=== PATIENT | male | born 1935 | race Caucasian/White ===

== ENCOUNTER → 2016-10-27 | Outpatient (CLI) | payer MEDICARE, BC ==
[2016-10-27 10:43] LABS: Blood Urea Nitrogen 23 mg/dL (9-20); Non-African American GFR(MDRD) 51 (>60 ml/min/1.73 sqM)
--- NOTE | 2016-10-27 11:35 | CT ---
EXAMINATION TYPE: CT chest w con DATE OF EXAM: 10/27/2016 11:17 AM COMPARISON: CT chest January 02, 2014. HISTORY: Lung nodule and chest pain per order. CT DLP: 766 mGycm. Automated Exposure Control for Dose Reduction was Utilized. TECHNIQUE: CT scan of the thorax is performed following with IV Contrast, patient injected with 80 m l mL of Visipaque 320. FINDINGS: LUNGS: There is some linear bibasilar scarring redemonstrated. No new suspicious groundglass opacity or consolidation is seen. No new concerning parenchymal nodule or mass is identified bilaterally. Th ere is no pleural effusion or pneumothorax seen. The tracheobronchial tree is patent. MEDIASTINUM: There are no greater than 1 cm hilar or mediastinal lymph nodes. No cardiomegaly or pe ricardial effusion is seen. Coronary artery calcification is noted. There is herniation of abdominal fat from the mediastinum into the lower chest posterior to the heart redemonstrated. OTHER: Small degree of bilateral gynecomastia is redemonstrated. There is focus of dystrophic calcifi cation along posterior margin of liver redemonstrated stable presumed benign, etiology uncertain. [place] pect related to prior trauma and healing. There is fat replaced atrophy of the pancreatic head and un cinate process. There is simple appearing 2 cm cyst upper pole level right kidney posteriorly diminis hed in size from prior. Mild multilevel spurring in the spine is present. IMPRESSION: No worrisome nodule or adenopathy is seen. No acute pulmonary process is evident.
== END | disposition home or self-care (01) ==
LOC: RADCTMAIN 09:56
PROVIDERS: ATTEND Family Medicine
DX: R07.9 Chest pain, unspecified (principal); R91.1 Solitary pulmonary nodule
CPT/HCPCS: 82565; 84520; 71260; 36415; Q9967

== ENCOUNTER → 2017-01-29 | Outpatient (CLI) | payer MEDICARE, BC ==
--- NOTE | 2017-01-29 11:18 | US ---
EXAMINATION TYPE: US kidneys/renal and bladder DATE OF EXAM: 01/29/2017 COMPARISON: CT & US CLINICAL HISTORY: Cyst on Kidney N28.1. Kidney cysts, history of bladder CA EXAM MEASUREMENTS: Right Kidney: 9.3 x 5.0 x 4.6 cm Left Kidney: 10.0 x 5.2 x 4.7 cm Right Kidney: 2.7 x 1.7 x 2.1cm hypoechoic area superior pole Left Kidney: wnl Bladder: wnl Bilateral Jets seen: yes There is no evidence for hydronephrosis at this point in time. No nephrolithiasis is seen. The uri nary bladder is anechoic. Bilateral ureteral jets are seen. IMPRESSION: Simple appearing cyst upper pole right kidney.
== END | disposition home or self-care (01) ==
LOC: RADUSWWP 09:48
PROVIDERS: ATTEND Urology
DX: N28.1 Cyst of kidney, acquired (principal)
CPT/HCPCS: 76770

== ENCOUNTER 2017-03-25 09:15 | Observation (INO) | payer MEDICARE, BC ==
[2017-03-25 10:15] LABS: Basophils # (A) 0.1 k/uL (0-0.2); Basophils % (A) 0 %; CH 33.5; CHCM 32.8; Eosinophils # (A) 0.3 k/uL (0-0.7); Eosinophils % (A) 2 %; HCT 40.1 % (39.0-53.0); HDW 2.22; HGB 13.2 gm/dL (13.0-17.5); Luc # (Auto) 0.22; Luc % (Auto) 1; Lymphocytes # (A) 1.1 k/uL (1.0-4.8); Lymphocytes % (A) 5 %; MCH 33.7 pg (25.0-35.0); MCHC 32.8 g/dL (31.0-37.0); MCV 102.8 fL (80.0-100.0); Macrocytosis Slight; Mean Platelet Volume 8.2; Monocytes # (A) 1.4 k/uL (0-1.0); Monocytes % (A) 7 %; Neutrophils # (A) 17.4 k/uL (1.3-7.7); Neutrophils % (A) 85 %; RBC 3.91 m/uL (4.30-5.90); RDW 13.7 % (11.5-15.5); WBC 20.5 k/uL (3.8-10.6); WBC (Perox) 20.34
[2017-03-25 10:23] LABS: Calcium 9.2 mg/dL (8.4-10.2); Potassium 3.9 mmol/L (3.5-5.1); Total Bilirubin 1.5 mg/dL (0.2-1.3); Total Protein 6.9 g/dL (6.3-8.2)
[2017-03-25 10:25] LABS: Appearance,Urine Clear (Clear); Bacteria,Urine Rare /hpf; Bilirubin,Urine Negative (Negative); Glucose,Urine (UA) Negative (Negative); Ketones,Urine Negative (Negative); Leukocyte Esterase,Urine Large (Negative); Mucus,Urine Rare /hpf; Nitrite,Urine Negative (Negative); Particle Count 3988; Protein,Urine Trace (Negative); RBC,Urine 3 /hpf (0-5); Specific Gravity,Urine 1.017 (1.001-1.035); UA Billing (MACRO vs. MICRO) MICRO; WBC,Urine 61 /hpf (0-5)
[2017-03-25] MEDS ORDERED: SODIUM CHLORIDE 0.9% 1,000 ML IV STA (10:26)
[2017-03-25 10:44] LABS: INR 1.1 (<1.2); Partial Thromboplastin Time 22.6 sec (22.0-30.0); Prothrombin Time 11.1 sec (9.0-12.0)
--- NOTE | 2017-03-25 10:46 | ED ---
General Adult HPI - General Source: patient, family, RN notes reviewed Mode of arrival: ambulatory Limitations: no limitations <Lolita Mckenzie - Last Filed: 03/25/17 11:03> <Ashwin Payne - Last Filed: 03/27/17 07:23> - General Chief complaint: Urogenital Stated complaint: abnormal labs Time Seen by Provider: 03/25/17 10:06 - History of Present Illness Initial comments: 82-year-old male presents to the emergency department with a chief complaint of urinary tract infection. Patient states he went to urgent care. They state home he had a phone call like he had a bladder infection that he needs to follow -up with his doctor or go to the emergency department. He states that he follow -up with his doctor this morning and they sent him here. He states that he did have a scope by Dr. Amin on Wednesday due to his history of bladder cancer every 3 years. Patient states that he was a little confused and weak yesterday. Patient denies any fever chills nausea or vomiting. They state that they were concerned due to the symptoms today were evaluated. They state that he has not been on any antibiotics outpatient clinic.Patient denies any recent fever, chills, shortness of breath, chest pain, back pain, abdominal pain , nausea vomiting, numbness or tingling, dysuria or hematuria, constipation or diarrhea, headaches or visual changes, or any other current symptoms. (Lolita Mckenzie) - Related Data Home Medications Medication Instructions Recorded Confirmed Aspirin 81 mg PO DAILY 12/11/13 03/25/17 Cholecalciferol [Vitamin D3] 2,000 unit PO DAILY 12/11/13 03/25/17 Levothyroxine Sodium [Synthroid] 125 mcg PO HS 12/11/13 03/25/17 Lisinopril 40 mg PO DAILY 12/11/13 03/25/17 Lovastatin [Mevacor] 40 mg PO DAILY 12/11/13 03/25/17 Previous Rx's Medication Instructions Recorded Cefuroxime Axetil [Ceftin] 500 mg PO BID #10 tab 03/26/17 Allergies Allergy/AdvReac Type Severity Reaction Status Date / Time No Known Allergies Allergy Verified 03/25/17 10:33 Review of Systems ROS Other: All systems not noted in ROS Statement are negative. <Lolita Mckenzie - Last Filed: 03/25/17 11:03> ROS Other: All systems not noted in ROS Statement are negative. <Ashwin Payne - Last Filed: 03/27/17 07:23> ROS Statement: Those systems with pertinent positive or pertinent negative responses have been documented in the HPI. Past Medical History Past Medical History: Cancer, Hyperlipidemia, Hypertension, Thyroid Disorder Additional Past Medical History / Comment(s): BLADDER TUMOR 2012 History of Any Multi-Drug Resistant Organisms: None Reported Past Surgical History: Bladder Surgery Additional Past Surgical History / Comment(s): BLADDER TUMOR REMOVED Past Anesthesia/Blood Transfusion Reactions: No Reported Reaction Past Psychological History: No Psychological Hx Reported Smoking Status: Never smoker Past Alcohol Use History: None Reported Past Drug Use History: None Reported <Lolita Mckenzie - Last Filed: 03/25/17 11:03> General Exam Limitations: no limitations <Lolita Mckenzie - Last Filed: 03/25/17 11:03> <Ashwin Payne - Last Filed: 03/27/17 07:23> - General Exam Comments Initial Comments: General: The patient is awake and alert, in no distress, and does not appear acutely ill. Eye: Pupils are equal, round and reactive to light, extra-ocular movements are intact; there is normal conjunctiva bilaterally. No signs of icterus. Ears, nose, mouth and throat: There are moist mucous membranes and no oral lesions. Neck: The neck is supple, there is no tenderness. Cardiovascular: There is a regular rate and rhythm. No murmur, rub or gallop is appreciated. Respiratory: Lungs are clear to auscultation, respirations are non-labored, breath sounds are equal. No wheezes, stridor, rales, or rhonchi. Gastrointestinal: Soft, non-distended, non-tender abdomen without masses or organomegaly noted. There is no rebound or guarding present. No CVA tenderness. Bowel sounds are unremarkable. Back: There is no tenderness to palpation in the midline. There is no obvious deformity. No rashes noted. Musculoskeletal: Normal ROM, no tenderness, There is no pedal edema. There is no calf tenderness or swelling. Sensation intact. Pulses equal bilaterally 2+. Neurological: CN II-XII intact, There are no obvious motor or sensory deficits. Coordination appears grossly intact. Speech is normal. Skin: Skin is warm and dry and no rashes or lesions are noted. Psychiatric: Cooperative, appropriate mood & affect, normal judgment. (Lolita Mckenzie) Medical Decision Making - Lab Data Result diagrams: 03/25/17 09:55 03/25/17 09:55 <Lolita Mckenzie - Last Filed: 03/25/17 11:03> - Lab Data Result diagrams: 03/26/17 07:35 03/26/17 07:35 <Ashwin Payne - Last Filed: 03/27/17 07:23> - Medical Decision Making 82-year-old male presents emergency Department what appears to be a UTI. Patient is found to be splinting some weakness and the spouse says the bleeding he had fever yesterday. This time Dr. Morales was contacted with the patient placed in observation. We'll start patient on Rocephin IV fluids. We discussed this with the patient and the family and the on agreement plan. All questions have been answered. (Lolita Mckenzie) 82 -Male presents emergency department after being sent in with lab abnormalities which are obtained in urgent care. These results were related to the patient's primary care physician. White blood cell Of 29,000 and an elevated serum creatinine. Patient had a recent urological procedure. He was seen at urgent care for generalized weakness. Patient currently has no complaints, evaluation. Laboratory studies today reveal an old white blood cell count at 20,000, serum creatinine is down trending. Patient receives IV hydration emergency department. Case is discussed with his primary care physician does recommend admission at this time. Patient will be given antibiotics for urinary tract infection, urine culture is pending. (Ashwin Payne) - Lab Data Lab Results 03/25/17 03/25/17 03/25/17 Range/Units 09:55 09:55 09:55 WBC 20.5 H (3.8-10.6) k/uL RBC 3.91 L (4.30-5.90) m/uL Hgb 13.2 (13.0-17.5) gm/dL Hct 40.1 (39.0-53.0) % MCV 102.8 H (80.0-100.0) fL MCH 33.7 (25.0-35.0) pg MCHC 32.8 (31.0-37.0) g/dL RDW 13.7 (11.5-15.5) % Plt Count 184 (150-450) k/uL Neutrophils % 85 % Lymphocytes % 5 % Monocytes % 7 % Eosinophils % 2 % Basophils % 0 % Neutrophils # 17.4 H (1.3-7.7) k/uL Lymphocytes # 1.1 (1.0-4.8) k/uL Monocytes # 1.4 H (0-1.0) k/uL Eosinophils # 0.3 (0-0.7) k/uL Basophils # 0.1 (0-0.2) k/uL Macrocytosis Slight PT (9.0-12.0) sec INR (<1.2) APTT (22.0-30.0) sec Sodium 137 (137-145) mmol/L Potassium 3.9 (3.5-5.1) mmol/L Chloride 100 (98-107) mmol/L Carbon Dioxide 27 (22-30) mmol/L Anion Gap 10 mmol/L BUN 28 H (9-20) mg/dL Creatinine 1.56 H (0.66-1.25) mg/dL Est GFR (MDRD) Af Amer 52 (>60 ml/min/1.73 sqM) Est GFR (MDRD) Non-Af 43 (>60 ml/min/1.73 sqM) Glucose 85 (74-99) mg/dL Plasma Lactic Acid Shekhar 1.7 (0.7-2.0) mmol/L Calcium 9.2 (8.4-10.2) mg/dL Total Bilirubin 1.5 H (0.2-1.3) mg/dL AST 22 (17-59) U/L ALT 36 (21-72) U/L Alkaline Phosphatase 71 (38-126) U/L Total Protein 6.9 (6.3-8.2) g/dL Albumin 3.8 (3.5-5.0) g/dL Urine Color Urine Appearance (Clear) Urine pH (5.0-8.0) Ur Specific [place] (1.001-1.035) Urine Protein (Negative) Urine Glucose (UA) (Negative) Urine Ketones (Negative) Urine Blood (Negative) Urine Nitrite (Negative) Urine Bilirubin (Negative) Urine Urobilinogen (<2.0) mg/dL Ur Leukocyte Esterase (Negative) Urine RBC (0-5) /hpf Urine WBC (0-5) /hpf Urine Bacteria (None) /hpf Urine Mucus (None) /hpf 03/25/17 03/25/17 Range/Units 09:55 09:55 WBC (3.8-10.6) k/uL RBC (4.30-5.90) m/uL Hgb (13.0-17.5) gm/dL Hct (39.0-53.0) % MCV (80.0-100.0) fL MCH (25.0-35.0) pg MCHC (31.0-37.0) g/dL RDW (11.5-15.5) % Plt Count (150-450) k/uL Neutrophils % % Lymphocytes % % Monocytes % % Eosinophils % % Basophils % % Neutrophils # (1.3-7.7) k/uL Lymphocytes # (1.0-4.8) k/uL Monocytes # (0-1.0) k/uL Eosinophils # (0-0.7) k/uL Basophils # (0-0.2) k/uL Macrocytosis PT 11.1 (9.0-12.0) sec INR 1.1 (<1.2) APTT 22.6 (22.0-30.0) sec Sodium (137-145) mmol/L Potassium (3.5-5.1) mmol/L Chloride (98-107) mmol/L Carbon Dioxide (22-30) mmol/L Anion Gap mmol/L BUN (9-20) mg/dL Creatinine (0.66-1.25) mg/dL Est GFR (MDRD) Af Amer (>60 ml/min/1.73 sqM) Est GFR (MDRD) Non-Af (>60 ml/min/1.73 sqM) Glucose (74-99) mg/dL Plasma Lactic Acid Shekhar (0.7-2.0) mmol/L Calcium (8.4-10.2) mg/dL Total Bilirubin (0.2-1.3) mg/dL AST (17-59) U/L ALT (21-72) U/L Alkaline Phosphatase (38-126) U/L Total Protein (6.3-8.2) g/dL Albumin (3.5-5.0) g/dL Urine Color Yellow Urine Appearance Clear (Clear) Urine pH 5.0 (5.0-8.0) Ur Specific [place] 1.017 (1.001-1.035) Urine Protein Trace H (Negative) Urine Glucose (UA) Negative (Negative) Urine Ketones Negative (Negative) Urine Blood Small H (Negative) Urine Nitrite Negative (Negative) Urine Bilirubin Negative (Negative) Urine Urobilinogen 2.0 (<2.0) mg/dL Ur Leukocyte Esterase Large H (Negative) Urine RBC 3 (0-5) /hpf Urine WBC 61 H (0-5) /hpf Urine Bacteria Rare H (None) /hpf Urine Mucus Rare H (None) /hpf Disposition Time of Disposition: 10:46 Decision Date: 03/25/17 Decision Time: 11:03 <Lolita Mckenzie - Last Filed: 03/25/17 11:03> <Ashwin Payne - Last Filed: 03/27/17 07:23> Clinical Impression: UTI (urinary tract infection), Weakness Disposition: ADMITTED IP TO THIS [facility] Condition: Stable
[2017-03-25] MEDS ORDERED: IBUPROFEN 400 MG TAB PO PRN (11:03)
[2017-03-25] MEDS ORDERED: NALOXONE 0.4 MG/ML 1 ML VIAL IV PRN (11:03)
[2017-03-25] MEDS ORDERED: ACETAMINOPHEN TAB 325 MG TAB PO PRN (11:03)
[2017-03-25] MEDS: SODIUM CHLORIDE 0.9% 1,000 ML IV SCH (11:33)
--- NOTE | 2017-03-25 17:03 | XR ---
EXAMINATION TYPE: XR chest 2V DATE OF EXAM: 03/25/2017 COMPARISON: 12/12/2013 HISTORY: Shortness of breath TECHNIQUE: Frontal and lateral views of the chest are obtained. FINDINGS: There is no focal air space opacity, pleural effusion, or pneumothorax seen. The cardiac silhouette size is enlarged. The osseous structures are intact. IMPRESSION: No acute cardiopulmonary process.
--- NOTE | 2017-03-25 18:52 | P.HPIM ---
History of Present Illness 82-year-old male presented to family practice physician with report from urgent care in [place]. Patient had a white count of of 20,000 with increase in neutrophils. On a urinalysis shown to have urinary tract infection. Patient had recent cystoscopy with Dr. Amin on Wednesday. When patient went to urgent care he was weak and fatigued and appeared septic Review of Systems Constitutional: Reports fever, Reports weakness Past Medical History Past Medical History: Cancer, Hyperlipidemia, Hypertension, Osteoarthritis (OA) , Thyroid Disorder Additional Past Medical History / Comment(s): BLADDER CANCER SURGERY 2011, HYPOTHYROID, MURMUR YRS AGO, DIVERTICULAR DX, HEMORRHOIDS, ARTHRITIS ESPECIALLY IN HANDS, R HAND TREMOR. History of Any Multi-Drug Resistant Organisms: None Reported Past Surgical History: Bladder Surgery Additional Past Surgical History / Comment(s): CYSTOCOPY WITH BLADDER TUMOR REMOVED, COLONOSCOPY, BILATERAL CATARACT REMOVAL WITH LENS IMPLANTS. Past Anesthesia/Blood Transfusion Reactions: No Reported Reaction Smoking Status: Never smoker - Past Family History Father Family Medical History: Myocardial Infarction (AR) Additional Family Medical History / Comment(s): FATHER HAD AR'S PRIOR TO AGE 60YRS. HE AT 62 FROM "HEART PROBLEMS." Mother Family Medical History: COPD Additional Family Medical History / Comment(s): MOTHER LIVED INTO HER 90'S. Medications and Allergies Home Medications Medication Instructions Recorded Confirmed Type Aspirin 81 mg PO DAILY 12/11/13 03/25/17 History Cholecalciferol [Vitamin D3] 2,000 unit PO DAILY 12/11/13 03/25/17 History Levothyroxine Sodium [Synthroid] 125 mcg PO HS 12/11/13 03/25/17 History Lisinopril 40 mg PO DAILY 12/11/13 03/25/17 History Lovastatin [Mevacor] 40 mg PO DAILY 12/11/13 03/25/17 History Allergies Allergy/AdvReac Type Severity Reaction Status Date / Time No Known Allergies Allergy Verified 03/25/17 10:33 Physical Exam Vitals: Vital Signs Temp Pulse Pulse Resp BP BP Pulse Ox 03/25/17 15:00 98 F 85 16 131/68 97 03/25/17 11:40 71 16 130/72 96 03/25/17 09:24 98.6 F 82 18 105/67 98 Intake and Output 03/25/17 03/25/17 03/25/17 06:59 14:59 22:59 Output Total 400 Balance -400 Output: Urine 400 Other: Voiding Method Urinal # Voids 2 Weight 95.708 kg Patient Weight 03/26/17 06:59 Weight 95.708 kg - Constitutional General appearance: mild distress, obese - EENT Eyes: PERRLA Ears: bilateral: normal - Neck Neck: normal ROM - Respiratory Respiratory: bilateral: CTA - Cardiovascular Rhythm: regular - Gastrointestinal General gastrointestinal: soft - Integumentary Integumentary: normal - Neurologic Neurologic: CNII-XII intact - Musculoskeletal Musculoskeletal: gait normal - Psychiatric Psychiatric: A&O x's 3, appropriate affect Results CBC & Chem 7: 03/25/17 09:55 03/25/17 09:55 Labs: Abnormal Lab Results - Last 24 Hours (Table) 03/25/17 03/25/17 03/25/17 Range/Units 09:55 09:55 09:55 WBC 20.5 H (3.8-10.6) k/uL RBC 3.91 L (4.30-5.90) m/uL MCV 102.8 H (80.0-100.0) fL Neutrophils # 17.4 H (1.3-7.7) k/uL Monocytes # 1.4 H (0-1.0) k/uL BUN 28 H (9-20) mg/dL Creatinine 1.56 H (0.66-1.25) mg/dL Total Bilirubin 1.5 H (0.2-1.3) mg/dL Urine Protein Trace H (Negative) Urine Blood Small H (Negative) Ur Leukocyte Esterase Large H (Negative) Urine WBC 61 H (0-5) /hpf Urine Bacteria Rare H (None) /hpf Urine Mucus Rare H (None) /hpf Microbiology - Last 24 Hours (Table) 03/25/17 09:55 Urine Culture - Preliminary Urine,Voided Chest x-ray: report reviewed Thrombosis Risk Factor Assmnt - Choose All That Apply Any of the Below Risk Factors Present?: Yes Each Factor Represents 1 point: Obesity (BMI >25) Other Risk Factors: Yes Each Risk Factor Represents 2 Points: Malignancy Each Risk Factor Represents 3 Points: Age 75 years or older Other congenital or acquired thrombophilia - If yes, enter type in comment: No Thrombosis Risk Factor Assessment Total Risk Factor Score: 6 Thrombosis Risk Factor Assessment Level: High Risk Assessment and Plan Plan: Assessment Acute urinary tract infection with sepsis Acute renal failure History of bladder cancer Leukocytosis Hypertension Hyperlipidemia Hypothyroidism Dehydration Plan Patient started on Rocephin We'll monitor CBC and CMP Patient given IV fluids
[2017-03-25] MEDS ORDERED: LEVOTHYROXINE 125 MCG TAB PO SCH (21:00)
[2017-03-26 07:46] VITALS: BP 143/71; PULSE 72; RESP 18; TEMP 97.7
[2017-03-26 08:03] LABS: Basophils % (A) 0 %; CH 33.4; CHCM 32.7; Eosinophils # (A) 0.2 k/uL (0-0.7); Eosinophils % (A) 2 %; HCT 37.5 % (39.0-53.0); HDW 2.21; Luc % (Auto) 3; Lymphocytes # (A) 0.9 k/uL (1.0-4.8); Lymphocytes % (A) 8 %; MCH 32.9 pg (25.0-35.0); MCHC 32.1 g/dL (31.0-37.0); MCV 102.5 fL (80.0-100.0); Macrocytosis Slight; Mean Platelet Volume 8.6; Monocytes # (A) 1.3 k/uL (0-1.0); Monocytes % (A) 12 %; Neutrophils # (A) 8.5 k/uL (1.3-7.7); Neutrophils % (A) 75 %; RBC 3.65 m/uL (4.30-5.90); RDW 13.6 % (11.5-15.5); WBC 11.2 k/uL (3.8-10.6); WBC (Perox) 11.76
[2017-03-26 08:27] LABS: ALT 38 U/L (21-72); AST 20 U/L (17-59); Alkaline Phosphatase 67 U/L (38-126); Anion Gap 6 mmol/L; Blood Urea Nitrogen 20 mg/dL (9-20); Calcium 8.8 mg/dL (8.4-10.2); Carbon Dioxide 25 mmol/L (22-30); Chloride 107 mmol/L (98-107); Glucose 100 mg/dL (74-99); Non-African American GFR(MDRD) 56 (>60 ml/min/1.73 sqM); Sodium 138 mmol/L (137-145); Total Bilirubin 0.8 mg/dL (0.2-1.3); Total Protein 5.7 g/dL (6.3-8.2)
[2017-03-26] MEDS ORDERED: ATORVASTATIN 10 MG TAB PO SCH (09:00)
[2017-03-26] MEDS ORDERED: ASPIRIN 81 MG PO SCH (09:00)
[2017-03-26] MEDS ORDERED: LISINOPRIL 20 MG TAB PO SCH (09:00)
[2017-03-26] MEDS ORDERED: cefTRIAXone 1,000 MG VIAL (IM USE) IM SCH (09:00)
[2017-03-26] MEDS: SODIUM CHLORIDE 0.9% 1,000 ML IV SCH (09:59)
[2017-03-26] MEDS ORDERED: CHOLECALCIFEROL 1,000 UNIT TAB PO SCH (12:00)
--- NOTE | 2017-03-26 18:01 | P.DS ---
Providers Date of admission: 03/25/17 11:02 Expected date of discharge: 03/26/17 Attending physician: Keaton Morales Dr/ Scotty. Final Diagnoses: Acute urinary tract infection with sepsis Acute renal failure History of bladder cancer Leukocytosis Hypertension Hyperlipidemia Hypothyroidism Dehydration Hospital course: 82-year-old male presented to family practice physician with report from urgent care in [place]. Patient had a white count of of 20,000 with increase in neutrophils. On a urinalysis shown to have urinary tract infection. Patient had recent cystoscopy with Dr. Amin on Wednesday. When patient went to urgent care he was weak and fatigued and appeared septic. Received IV fluid hydration , antibiotics. Significant clinical improvement. Patient is being discharged home in a stable condition with guarded prognosis. The impression and plan of care has been dictated as directed as a scribe. : I performed a H&P examination of this patient and discussed the same with the dictator. I agree with the dictator's note. Any additional findings/opinions/ etc. will be noted. Dr. Fajardo. Primary care physician: Keaton Morales Patient Condition at Discharge: Stable Plan - Discharge Summary New Discharge Prescriptions: New Cefuroxime Axetil [Ceftin] 500 mg PO BID #10 tab Continue Levothyroxine Sodium [Synthroid] 125 mcg PO HS Lisinopril 40 mg PO DAILY Lovastatin [Mevacor] 40 mg PO DAILY Cholecalciferol [Vitamin D3] 2,000 unit PO DAILY Aspirin 81 mg PO DAILY Discharge Medication List Aspirin 81 mg PO DAILY 12/11/13 [History] Cholecalciferol [Vitamin D3] 2,000 unit PO DAILY 12/11/13 [History] Levothyroxine Sodium [Synthroid] 125 mcg PO HS 12/11/13 [History] Lisinopril 40 mg PO DAILY 12/11/13 [History] Lovastatin [Mevacor] 40 mg PO DAILY 12/11/13 [History] Cefuroxime Axetil [Ceftin] 500 mg PO BID #10 tab 03/26/17 [Rx] Follow up Appointment(s)/Referral(s): Keaton Morales MD [Primary Care Provider] - 04/02/17 10:40 am Ambulatory/Diagnostic Orders: Complete Blood Count w/diff [LAB.AMB] Time Frame: 3 Days, Location: Determined By Patient Discharge Disposition: HOME SELF-CARE
== END 2017-03-26 14:58 | disposition home or self-care (01) ==
LOC: EC 09:15 → 5MS5E 11:02
PROVIDERS: ADMIT Family Medicine; ATTEND Family Medicine
DX: A41.9 Sepsis, unspecified organism (principal); N39.0 Urinary tract infection, site not specified; I10 Essential (primary) hypertension; E78.5 Hyperlipidemia, unspecified; M19.90 Unspecified osteoarthritis, unspecified site; E03.9 Hypothyroidism, unspecified; R25.1 Tremor, unspecified; N17.9 Acute kidney failure, unspecified; E86.0 Dehydration; R01.1 Cardiac murmur, unspecified; Z85.51 Personal history of malignant neoplasm of bladder; Z79.82 Long term (current) use of aspirin; Z79.899 Other long term (current) drug therapy; Z82.49 Family history of ischemic heart disease and other diseases of the circulatory system
CPT/HCPCS: 96366; 96361; 99284; 36415; 80053 ×2; 83605; 85025 ×2; 85610; 85730; 81001; 87040; 87086; 71020; G0378 ×2; J0696 ×2; 96365

== ENCOUNTER → 2018-04-25 | Outpatient (CLI) | payer MEDICARE, BC ==
--- NOTE | 2018-04-25 16:51 | XR ---
Lumbar spine HISTORY: Back pain 3 views of the lumbar spine correlated to prior exam 02/28/2013 Bone mineralization is reduced and stable. Lumbar vertebral bodies show stable height and alignment. Loss of height of superior endplate of T12 is suspected which may been interval finding. There is mul tilevel spondylosis. Some loss of disc height present at the intervertebral levels. Sclerosis present in the posterior elements of the lower lumbar spine. There are vascular calcifications present. Hype rtrophic change present at the sacroiliac joints greater on the left and stable compared to prior exa m. IMPRESSION: Superior endplate fracture of T12 of indeterminate age. Degenerative disc disease, osteop enia, facet arthropathy. Additional findings above.
== END ==
LOC: RADXRMAIN 13:28
PROVIDERS: ATTEND Family Medicine
DX: M51.36 Other intervertebral disc degeneration, lumbar region (principal); M47.816 Spondylosis without myelopathy or radiculopathy, lumbar region; M46.96 Unspecified inflammatory spondylopathy, lumbar region; M85.88 Other specified disorders of bone density and structure, other site
CPT/HCPCS: 72100

== ENCOUNTER → 2018-05-13 | Outpatient (CLI) | payer MEDICARE ==
--- NOTE | 2018-05-13 11:57 | ECHOF ---
Referral Reason:I10 Hypertension MEASUREMENTS -------- HEIGHT: 180.3 cm WEIGHT: 86.2 kg BP: IVSd: 1.3 cm (0.6 - 1.1) LVIDd: 4.4 cm (3.9 - 5.3) LVPWd: 1.4 cm (0.6 - 1.1) IVSs: 2.2 cm LVIDs: 1.9 cm LVPWs: 2.0 cm Ao Diam: 2.8 cm (2.0 - 3.7) AV Cusp: 0.6 cm (1.5 - 2.6) LA Diam: 4.5 cm (2.7 - 3.8) EPSS: 0.9 cm MV E Dany: 0.75 m/s MV DecT: 236 ms MV A Dany: 0.73 m/s MV E/A Ratio: 1.04 AV maxP.11 mmHg AV meanP.61 mmHg AR PHT: 274 ms RAP: 5.00 mmHg RVSP: 12.24 mmHg MV EF SLOPE: 101.07 mm/s (70 - 150) MV EXCURSION: 1.46 cm (> 18.000) FINDINGS -------- Sinus rhythm. This was a technically good study. The left ventricular size is normal. There is mild concentric left ventricular hypertrophy. Overa ll left ventricular systolic function is normal with, an EF between 55 - 60 %. The right ventricle is normal in size and function. The left atrium is mildly dilated. The right atrium is normal in size. Aortic valve is trileaflet and is severely thickened. Trace amount of aortic regurgitation. Ther e is severe aortic stenosis present. Peak/mean gradient across the Aortic Valve is 50.11mmHg / 34.6 1mmHg. The mitral valve leaflets are mildly thickened. Mild mitral regurgitation is present. Mild tricuspid regurgitation present. The right ventricular systolic pressure, as measured by Doppl er, is 12.24mmHg. The aortic root size is normal. The pericardium is normal. CONCLUSIONS -------- 1. Sinus rhythm. 2. This was a technically good study. 3. The left ventricular size is normal. 4. There is mild concentric left ventricular hypertrophy. 5. Overall left ventricular systolic function is normal with, an EF between 55 - 60 %. 6. The right ventricle is normal in size and function. 7. The left atrium is mildly dilated. 8. The right atrium is normal in size. 9. Aortic valve is trileaflet and is severely thickened. 10. Trace amount of aortic regurgitation. 11. There is severe aortic stenosis present. 12. Peak/mean gradient across the Aortic Valve is 50.11mmHg / 34.61mmHg. 13. The mitral valve leaflets are mildly thickened. 14. Mild mitral regurgitation is present. 15. Mild tricuspid regurgitation present. 16. The right ventricular systolic pressure, as measured by Doppler, is 12.24mmHg. 17. The aortic root size is normal. 18. The pericardium is normal. CURRENCY MACHINE OPERATOR: Stephy Roger RDCS
== END | disposition home or self-care (01) ==
LOC: RADECHMAIN 08:00
PROVIDERS: ATTEND Family Medicine
DX: I08.3 Combined rheumatic disorders of mitral, aortic and tricuspid valves (principal)
CPT/HCPCS: 93306

== ENCOUNTER 2018-05-18 06:10 | Day surgery (SDC) | payer BC, MEDICARE ==
[2018-05-11 10:39] VITALS: BMI 27.2
[~2018-05-18 06:10] MED LIST: SODIUM CHLORIDE 0.9% IRRIGATIO 1,000 ML IRRIGATION ONE; ceFAZolin IN SWFI 2 GM/20 ML SYRINGE IVP ONE
[2018-05-18] MEDS ORDERED: SCOPOLAMINE 1.5MG/72HR PATCH TRANSDERM ONE (06:12)
[2018-05-18] MEDS ORDERED: MIDAZOLAM 2 MG/2 ML VIAL IV PRN (06:12)
[2018-05-18] MEDS ORDERED: HYDROmorphone 1 MG/ML 1 ML SYRINGE IVP PRN ×2 (06:12→09:51)
[2018-05-18] MEDS ORDERED: LIDOCAINE 1% 20 ML VIAL (10MG/ML) FOR IV START INTRADERMA PRN (06:12)
[2018-05-18] MEDS ORDERED: ONDANSETRON 4 MG/2 ML VIAL IVP ONE (06:12)
[2018-05-18] MEDS ORDERED: LACTATED RINGERS 1,000 ML IV SCH (06:12)
[2018-05-18] MEDS ORDERED: DEXAMETHASONE SOD PHOSPHATE 10 MG/ML 1 ML VIAL IV ONE (06:12)
[2018-05-18] MEDS ORDERED: ceFAZolin IN SWFI 2 GM/20 ML SYRINGE IVP ONE (07:45)
[2018-05-18 07:50] LABS: Glucose,Whole Blood 64 mg/dL (75-99)
[2018-05-18 07:50] LABS: Glucose,Whole Blood 89 mg/dL (75-99)
[2018-05-18] MEDS ORDERED: PROPOFOL 10 MG/ML 20 ML VIAL IV ONE (08:28)
[2018-05-18] MEDS ORDERED: LIDOCAINE 1% INJ 10MG/ML (20 ML MDV) ONE (08:28)
[2018-05-18] MEDS ORDERED: SUCCINYLCHOLINE CHLORIDE 100 MG/5 ML SYR IV ONE (08:28)
[2018-05-18] MEDS ORDERED: fentaNYL (PF) 50 MCG/ML 2 ML AMP ONE (08:28)
[2018-05-18] MEDS ORDERED: PHENYLEPHRINE-0.9% NACL SYG 1 MG/10 ML SYRINGE ONE (08:28)
[2018-05-18] MEDS ORDERED: BUPIVACAIN-EPI 0.5%-1:200,000 30 ML VIAL SQ ONE (09:04)
[2018-05-18] MEDS ORDERED: IOPAMIDOL-370 50ML BTL MISCELLANE ONE (09:04)
[2018-05-18] MEDS ORDERED: BENZOCAINE/MENTHOL LOZENG 1 EACH LOZENGE MUCOUS MEM PRN (09:51)
[2018-05-18] MEDS ORDERED: traMADol 50 MG TAB PO PRN (09:51)
[2018-05-18] MEDS ORDERED: ONDANSETRON 4 MG/2 ML VIAL IVP PRN (09:53)
[2018-05-18] MEDS ORDERED: IBUPROFEN 600 MG TAB PO PRN (09:53)
[2018-05-18] MEDS ORDERED: KETOROLAC 30 MG/ML 1 ML VIAL IVP PRN (09:53)
[2018-05-18] MEDS ORDERED: HYDROcodone/APAP 5-325MG 1 EACH TAB PO PRN (09:53)
[2018-05-18] MEDS ORDERED: SODIUM CHLORIDE 0.9% 1,000 ML IV SCH (10:00)
--- NOTE | 2018-05-18 10:01 | P.OP ---
Date of Procedure: 05/18/18 Preoperative Diagnosis: T12 vertebral osteoporotic compression fracture, traumatic and acute Thoracolumbar back pain Postoperative Diagnosis: Same Procedure(s) Performed: T12 vertebral body biopsy T12 kyphoplasty Fluoroscopic guidance Anesthesia: GETA Pathology: other (T12 drill reamings sent to pathology) Condition: stable Disposition: PACU Description of Procedure: BRIEF OPERATIVE NOTE Preoperative Diagnosis: Vertebral compression fracture at T12, acute traumatic with osteoporosis Postoperative Diagnosis: Same Procedure: Kyphoplasty T12 Vertebral body biopsy T12 with reamings of vertebral body Use of fluoroscopic guidance Surgeon: Dr. Byrne Final Installer Inspector: Beto Jones is present throughout the entire the case persistence during positioning, dissection, exposure, visualization, and all crucial elements of the case as well as closure. Anesthesia: General anesthesia Estimated blood loss: Less than 10 mL Specimen: Vertebral body biopsy sent to pathology in formalin Complications: None apparent Components implanted: Bone cement Disposition: To recovery room in good stable condition. OPERATIVE INDICATIONS The patient has been having issues in their back ever since sustaining an injury. He has been found have a new acute traumatic compression fracture at T12 which seem to be a primary source of his symptoms. There is some evidence of compression deformities at T8-T9 and T10 which were seen on prior imaging of prior CT scans and appears to be chronic and stable. The patient has been through conservative treatment. They attempted conservative care with bracing however they're not having any benefit despite brace use. They continue to have significant pain and debility due to their fracture. He was having severe debility and unable to get up out of bed and walk around due to the pain; the T12 compression fracture. We discussed various treatment options including surgery, and the patient wishes to proceed with surgery We discussed the risk, patient's alternatives and benefits of surgery including but not limited to, risk of bleeding risk of infection, risk of need for further surgery, risk of decreased, loss of motion, loss of function, cement extravasation, nerve damage , paralysis, heart attack, blindness and . OPERATIVE SUMMARY After discussing all the risks, patient alternatives and benefits at length, the patient elected to proceed with surgical intervention, signed informed consent, and presented for their procedure. The patient was seen and examined in the preoperative holding area and the surgical site was marked. The patient was given antibiotics and brought to the operating room. The patient was sedated and intubated by anesthesia in standard fashion. The patient was positioned on to the operating room table in a prone position on the appropriate well-padded and well molded bilateral chest rolls. We were careful to pad any bony prominences and pressure points. We were careful to maintain the patient's cervical spine and good neutral alignment and position throughout. We used C-arm machines to establish fluoroscopic guidance in AP and lateral positions. We were able to localize the fractures appropriately at T12. The patient was prepped and draped in a normal standard fashion. An appropriate timeout and keystone protocol performed. We were able to proceed with the surgery. The local wound area was infiltrated with local anesthetic. An incision was made over the lateral aspect of the pedicle over the appropriate levels with a small 2 mm stab incision on the right at T12. Intraoperative fluoroscopy was taken which showed a marker at the appropriate level. With the appropriate level positively confirmed, I was able to position a sharp trocar over the lateral aspect of the pedicle. As able to advance the trocar into the pedicle and into the posterior aspect of vertebral body being careful to avoid penetration cephalad caudad or medially. The trocar was placed appropriately into the posterior aspect of vertebral body at the appropriate levels. This was confirmed with C-arm guidance. We did have some trouble with the fluoroscopy machine we had to change it out during the case. The new fluoroscopic images with machine marked maintained in able to be viewed appropriately. With the trocar intact I was then able to take a bone biopsy with a biopsy punch or a bony drill. The biopsy specimen was passed off to be sent to pathology in formalin. I was then able to place the kyphoplasty balloon within the vertebral body. The position was checked on C-arm. I was able to inflate the balloon under low pressure and visualization with C-arm. The balloon was well enclosed within the vertebral body. The cement was prepared. With the cement at appropriate working condition the balloons were deflated and removed. I was able to place bony cement with trocar with the cement delivery device under low pressure. It had good fill within the vertebral body. There is no evidence of any extravasation of the cement posteriorly toward the canal. The cement was well contained at the appropriate levels. The cement was allowed to cure appropriately. [place] [employer] [address] [place] 6 mL of bone cement within the vertebral body The trochars removed and final images were taken on C-arm. This showed the cement at the appropriate level of T12. We were able to proceed with closure. The wound was cleaned and dried and dressed with the appropriate dressing. The drapes were broken down. The patient was gently rolled back onto their hospital bed being careful to maintain their cervical spine and good neutral alignment and position. They were woken up by anesthesia, extubated, and brought to the recovery room in good stable condition. The patient will be admitted to the hospital for observation and for appropriate postoperative care, medical management and monitoring. We will continue to follow them closely about the postoperative course.
[2018-05-18 10:15] VITALS: TEMP 98.5
--- NOTE | 2018-05-18 10:47 | XR ---
2 view thoracic spine HISTORY: Kyphoplasty 4 intraoperative C-arm images document the procedure.
--- NOTE | 2018-05-18 10:48 | FL ---
Fluoroscopy HISTORY: Kyphoplasty T12 41 seconds fluoroscopy time supplied to the referring clinician. 4 intraoperative C-arm images docum ent the procedure. See dictated report from orthopedic surgery.
[2018-05-18 11:06] LABS: Glucose,Whole Blood 78 mg/dL (75-99)
[2018-05-18 11:09] VITALS: RESP 18
[2018-05-18 11:58] VITALS: BP 131/60; PULSE 71
[2018-05-18] MEDS ORDERED: ROPINIROLE HCL 2 MG PO SCH (21:00)
[2018-05-19] MEDS ORDERED: NON-FORMULARY DRUG (Lovastatin 40 MG) PO SCH (09:00)
[2018-05-19] MEDS ORDERED: ASPIRIN 81 MG PO SCH (09:00)
[2018-05-19] MEDS ORDERED: NON-FORMULARY DRUG (Lisinopril [Lisinopril] 40 MG) PO SCH (09:00)
[2018-05-19] MEDS ORDERED: CHOLECALCIFEROL 1,000 UNIT TAB PO SCH (09:00)
[2018-05-19] MEDS ORDERED: LEVOTHYROXINE 125 MCG TAB PO SCH (09:00)
== END 2018-05-18 12:40 | disposition home or self-care (01) ==
LOC: OR 06:10
PROVIDERS: ATTEND Orthopaedic Surgery Orthopaedic Surgery of the Spine
DX: S22.080A Wedge compression fracture of T11-T12 vertebra, initial encounter for closed fracture (principal); X58.XXXA Exposure to other specified factors, initial encounter; M81.0 Age-related osteoporosis without current pathological fracture; M85.80 Other specified disorders of bone density and structure, unspecified site; M51.36 Other intervertebral disc degeneration, lumbar region; M47.816 Spondylosis without myelopathy or radiculopathy, lumbar region; I10 Essential (primary) hypertension; E78.5 Hyperlipidemia, unspecified; E78.00 Pure hypercholesterolemia, unspecified; E03.9 Hypothyroidism, unspecified; C67.9 Malignant neoplasm of bladder, unspecified; H91.90 Unspecified hearing loss, unspecified ear; L98.9 Disorder of the skin and subcutaneous tissue, unspecified; Z79.82 Long term (current) use of aspirin; Z79.890 Hormone replacement therapy; Z79.899 Other long term (current) drug therapy
CPT/HCPCS: 88307; 72070; 22513; C1713; J2405; J2001; J3010; J1885; J2370; J0330; J2704; J0690; Q9967

== ENCOUNTER → 2018-11-26 | Outpatient (CLI) | payer MEDICARE ==
--- NOTE | 2018-11-28 14:47 | MR ---
EXAMINATION TYPE: MR brain wo/w con DATE OF EXAM: 11/26/2018 COMPARISON: None HISTORY: Anemia / Tremor/ neoplasm meningioma all per order. Parkinson's disease per patient. TECHNIQUE: Multiplanar, multisequence images of the brain and brainstem is performed without and with IV contras t, utilizing 7.5 mL intravenous Gadavist . FINDINGS: Diffusion weighted images demonstrate no evidence of a recent infarct or other diffusion ab normality. There is no extra-axial fluid collection. There are focal and confluent scattered hyperin tensities on inversion recovery T2-weighted sequences within the periventricular, subcortical and jux tacortical white matter, greater than 50 lesions are present. There is diffuse ventricular and sulcal prominence. 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 Midline structures demonstrate normal morphology. The craniocervical junction appears within normal limits. Post contrast images demonstrate no abnormal enhancement. The dural venous sinuses appear pa tent. The visualized sinuses are remarkable for mild mucosal thickening in the maxillary and ethmoid sinuses bilaterally. The globes are intact. IMPRESSION: Mild diffuse age-related cerebral atrophy and moderate to severe chronic small vessel isc hemic change. Mild chronic paranasal sinus disease. No suspicious enhancing intracranial mass or neop lasm.
== END ==
LOC: RADMRIMAIN 09:30
PROVIDERS: ATTEND Psychiatry & Neurology Neurology
DX: G31.1 Senile degeneration of brain, not elsewhere classified (principal); I67.82 Cerebral ischemia
CPT/HCPCS: 70553; A9585

== ENCOUNTER 2019-01-30 17:23 | Inpatient (IN) | payer MEDICARE ==
[2019-01-30] MEDS ORDERED: DIPH,PERTUS(ACELL)TETVAC-LF 0.5 ML VIAL IM ONE (17:57)
--- NOTE | 2019-01-30 17:58 | ED ---
General Adult HPI - General Chief complaint: Fall Stated complaint: fall Time Seen by Provider: 01/30/19 17:44 Source: patient Mode of arrival: wheelchair Limitations: no limitations - History of Present Illness Initial comments: Dictation was produced using Real [employer] dictation software. please excuse any grammatical, word or spelling errors. Chief Complaint: 83-year-old male past medical history of Parkinson's disease, dyslipidemia hypertension presents after fall. History of Present Illness: All male. Presents after mechanical fall. Patient states he was walking from the [facility] when he tripped over the [facility]. Patient states that he fell landing on his right side. Fall was witnessed by his . Patient denies any injury to his head. Patient denies any headache, neck pain. Patient states his pain is mostly to his right elbow and right knee. Patient is brought in through triage by family. Patient does not know when his last tetanus was. Patient having difficulty bearing weight on his right lower extremity. Patient has history of Parkinson's disease. He does have baseline difficulty walking secondary to tremors. The ROS documented in this emergency department record has been reviewed and confirmed by me. Those systems with pertinent positive or negative responses have been documented in the HPI. All other systems are other negative and/or noncontributory. PHYSICAL EXAM: General Impression: Alert and oriented x3, not in acute distress HEENT: Normocephalic atraumatic, extra-ocular movements intact, pupils equal and reactive to light bilaterally, mucous membranes moist. Cardiovascular: Heart regular rate and rhythm, S1&S2 audible, no murmurs, rubs or gallops Chest: Lungs clear to auscultation bilaterally, no rhonchi, no wheeze, no rales Abdomen: Bowel sounds present, abdomen soft, non-tender, non-distended, no organomegaly Musculoskeletal: Pulses present and equal in all extremities, no peripheral edema. All joints ranged with no difficulties. Motor: no focal deficits noted Neurological: CN II-XII grossly intact, no focal motor or sensory deficits noted Skin: Superficial abrasions to the right elbow and right lateral knee. Psych: Normal affect and mood ED course: 83 male presents after mechanical fall. He has history of Parkinson's disease and difficulty walking at baseline. All signs upon arrival are within acceptable limits. Patient has significant tenderness to his right hip. Computed tomography scan of the head and C-spine was obtained showing no acute processes. The x-rays unremarkable. Elbow x-ray is unremarkable. Chest x-ray is negative. Spine x- ray does show minimal worsening of compression fractures to his thoracic spine. Patient does have history of this. Denies any back pain at the moment. Patient is follow-up with Dr. Byrne regarding this. Hip and pelvis x-ray shows subcapital right femur fracture. Suspicion case with the branch who requests that [facility] given that patient has established care with Dr. Byrne. Discussed patient case with Dr. Schneider who is willing to accept patient's care for hip fracture. He requests nothing by mouth at midnight. Patient also has medical consultation. An EKG. per requests by Dr. Schneider we notified Dr. Tan for medical consultation. Discussed patient case with Dr. Tan who is aware patient. Patient be admitted. - Related Data Home Medications Medication Instructions Recorded Confirmed Aspirin 81 mg PO DAILY 12/11/13 01/30/19 Levothyroxine Sodium [Synthroid] 125 mcg PO DAILY 12/11/13 01/30/19 Lisinopril 40 mg PO DAILY 12/11/13 01/30/19 Lovastatin [Mevacor] 40 mg PO DAILY 12/11/13 01/30/19 traMADol HCL [Ultram] 50 mg PO Q6HR PRN 05/11/18 01/30/19 Amantadine HCl [Symmetrel] 100 mg PO BID 01/30/19 01/30/19 Carbidopa-Levodopa 25-100 mg 1 tab PO TID 01/30/19 01/30/19 [Sinemet 25-100] Cholecalciferol [Vitamin D3] 400 unit PO DAILY 01/30/19 01/30/19 Methocarbamol [Robaxin] 500 mg PO TID PRN 01/30/19 01/30/19 rOPINIRole HCL [Requip] 0.25 mg PO HS 01/30/19 01/30/19 Allergies Allergy/AdvReac Type Severity Reaction Status Date / Time No Known Allergies Allergy Verified 01/30/19 18:57 Review of Systems ROS Statement: Those systems with pertinent positive or pertinent negative responses have been documented in the HPI. ROS Other: All systems not noted in ROS Statement are negative. Past Medical History Past Medical History: Cancer, Hyperlipidemia, Hypertension, Osteoarthritis (OA), Thyroid Disorder Additional Past Medical History / Comment(s): BLADDER CANCER SURGERY 2012, HYPOTHYROID, MURMUR YRS AGO, DIVERTICULAR DX, HEMORRHOIDS, ARTHRITIS ESPECIALLY IN HANDS, R HAND TREMOR. History of Any Multi-Drug Resistant Organisms: None Reported Past Surgical History: Bladder Surgery Additional Past Surgical History / Comment(s): CYSTOCOPY WITH BLADDER TUMOR REMOVED, COLONOSCOPY, BILATERAL CATARACT REMOVAL WITH LENS IMPLANTS. Past Anesthesia/Blood Transfusion Reactions: No Reported Reaction Past Psychological History: No Psychological Hx Reported Smoking Status: Never smoker Past Alcohol Use History: None Reported Past Drug Use History: None Reported - Past Family History Father Family Medical History: Myocardial Infarction (GA) Additional Family Medical History / Comment(s): FATHER HAD GA'S PRIOR TO AGE 60YRS. HE AT 62 FROM "HEART PROBLEMS." Mother Family Medical History: COPD Additional Family Medical History / Comment(s): MOTHER LIVED INTO HER 90'S. General Exam Limitations: no limitations Course Vital Signs 01/30/19 01/30/19 17:36 19:56 Temperature 97.8 F 97.9 F Pulse Rate 94 87 Respiratory 18 15 Rate Blood Pressure 128/68 138/78 O2 Sat by Pulse 94 L 95 Oximetry Medical Decision Making - Lab Data Result diagrams: 01/30/19 18:10 01/30/19 18:15 Lab Results 01/30/19 01/30/19 01/30/19 Range/Units 18:10 18:13 18:15 WBC 17.4 H (3.8-10.6) k/uL RBC 4.27 L (4.30-5.90) m/uL Hgb 13.7 (13.0-17.5) gm/dL Hct 43.0 (39.0-53.0) % MCV 100.9 H (80.0-100.0) fL MCH 32.2 (25.0-35.0) pg MCHC 31.9 (31.0-37.0) g/dL RDW 13.7 (11.5-15.5) % Plt Count 226 (150-450) k/uL Neutrophils % 85 % Lymphocytes % 3 % Monocytes % 10 % Eosinophils % 1 % Basophils % 0 % Neutrophils # 14.7 H (1.3-7.7) k/uL Lymphocytes # 0.6 L (1.0-4.8) k/uL Monocytes # 1.8 H (0-1.0) k/uL Eosinophils # 0.2 (0-0.7) k/uL Basophils # 0.0 (0-0.2) k/uL Macrocytosis Slight PT (9.0-12.0) sec INR (<1.2) Sodium 141 (137-145) mmol/L Potassium 4.2 (3.5-5.1) mmol/L Chloride 105 (98-107) mmol/L Carbon Dioxide 25 (22-30) mmol/L Anion Gap 11 mmol/L BUN 30 H (9-20) mg/dL Creatinine 1.49 H (0.66-1.25) mg/dL Est GFR (CKD-EPI)AfAm 49 (>60 ml/min/1.73 sqM) Est GFR (CKD-EPI)NonAf 43 (>60 ml/min/1.73 sqM) Glucose 140 H (74-99) mg/dL POC Glucose (mg/dL) 133 H (75-99) mg/dL POC Glu Fall Internship ID Fetterly, Vianey Calcium 10.0 (8.4-10.2) mg/dL 01/30/19 Range/Units 18:15 WBC (3.8-10.6) k/uL RBC (4.30-5.90) m/uL Hgb (13.0-17.5) gm/dL Hct (39.0-53.0) % MCV (80.0-100.0) fL MCH (25.0-35.0) pg MCHC (31.0-37.0) g/dL RDW (11.5-15.5) % Plt Count (150-450) k/uL Neutrophils % % Lymphocytes % % Monocytes % % Eosinophils % % Basophils % % Neutrophils # (1.3-7.7) k/uL Lymphocytes # (1.0-4.8) k/uL Monocytes # (0-1.0) k/uL Eosinophils # (0-0.7) k/uL Basophils # (0-0.2) k/uL Macrocytosis PT 10.8 (9.0-12.0) sec INR 1.0 (<1.2) Sodium (137-145) mmol/L Potassium (3.5-5.1) mmol/L Chloride (98-107) mmol/L Carbon Dioxide (22-30) mmol/L Anion Gap mmol/L BUN (9-20) mg/dL Creatinine (0.66-1.25) mg/dL Est GFR (CKD-EPI)AfAm (>60 ml/min/1.73 sqM) Est GFR (CKD-EPI)NonAf (>60 ml/min/1.73 sqM) Glucose (74-99) mg/dL POC Glucose (mg/dL) (75-99) mg/dL POC Glu Fall Internship ID Calcium (8.4-10.2) mg/dL Disposition Clinical Impression: Fall, Hip fracture Disposition: ADMITTED IP TO THIS HOSP Condition: Fair Referrals: Keaton Morales MD [Primary Care Provider] - 1-2 days Decision Time: 21:11
[2019-01-30 18:16] LABS: Glucose,Whole Blood 133 mg/dL (75-99)
[2019-01-30 18:44] LABS: Potassium 4.2 mmol/L (3.5-5.1)
[2019-01-30 18:45] LABS: Prothrombin Time 10.8 sec (9.0-12.0)
[2019-01-30 19:06] LABS: Basophils % (A) 0 %; Eosinophils # (A) 0.2 k/uL (0-0.7); Eosinophils % (A) 1 %; HGB 13.7 gm/dL (13.0-17.5); Lymphocytes # (A) 0.6 k/uL (1.0-4.8); Lymphocytes % (A) 3 %; MCH 32.2 pg (25.0-35.0); MCHC 31.9 g/dL (31.0-37.0); MCV 100.9 fL (80.0-100.0); Macrocytosis Slight; Mean Platelet Volume 7.8; Monocytes # (A) 1.8 k/uL (0-1.0); Monocytes % (A) 10 %; Neutrophils # (A) 14.7 k/uL (1.3-7.7); Neutrophils % (A) 85 %; Platelet Count 226 k/uL (150-450); RBC 4.27 m/uL (4.30-5.90); RDW 13.7 % (11.5-15.5); WBC 17.4 k/uL (3.8-10.6)
--- NOTE | 2019-01-30 19:11 | CT ---
EXAMINATION TYPE: CT brain robb garrido DATE OF EXAM: 01/30/2019 COMPARISON: HISTORY: Fall today. CT DLP: 1367.7 mGycm Automated exposure control for dose reduction was used. TECHNIQUE: CT scan of the head and cervical spine are performed without contrast. FINDINGS: There is mild cerebral cortical atrophy. There is no mass effect nor midline shift. There is no sign of intracranial hemorrhage. Calvarium is intact. Cervical vertebra have normal alignment. There is some narrowing at C5-6 disc space. There is anterio r spurring at C4-5 and C5-6. Facet joints are intact. Skull base is intact. IMPRESSION: No acute intracranial abnormality. Mild spondylosis in the cervical spine. No fracture.
[2019-01-30] MEDS ORDERED: fentaNYL (PF) 50 MCG/ML 2 ML AMP IVP STA (19:23)
--- NOTE | 2019-01-30 19:30 | XR ---
EXAMINATION TYPE: XR elbow limited RT DATE OF EXAM: 01/30/2019 COMPARISON: NONE HISTORY: Fall. Pain. TECHNIQUE: 2 views FINDINGS: I see no fracture nor dislocation. Joint spaces are fairly normal. IMPRESSION: Negative right elbow exam.
--- NOTE | 2019-01-30 19:31 | XR ---
EXAMINATION TYPE: XR chest 2V DATE OF EXAM: 01/30/2019 COMPARISON: 01/30/2019 HISTORY: Pain TECHNIQUE: Frontal and lateral views of the chest are obtained. FINDINGS: There is blunting right costophrenic angle. There is some linear density right lung base. There is no heart failure. Heart appears slightly enlarged. IMPRESSION: There is new right pleural effusion and right basilar atelectasis compared to old exam. Mild cardiomegaly. No overt heart failure.
--- NOTE | 2019-01-30 19:34 | XR ---
EXAMINATION TYPE: XR spine complete AP and Lat DATE OF EXAM: 01/30/2019 COMPARISON: NONE HISTORY: Fall. Pain. TECHNIQUE: 9 views FINDINGS: There is old vertebroplasty of T12 with 30% anterior wedging. There is 50% anterior wedging of T11. There is 20% anterior wedging of T10. There is 10% depression superior endplate of L3. There is anterior wedging 25% of T8. There is no thoracic paraspinal mass. There is degenerative disc spac e narrowing at C5-6. Cervical vertebra have normal alignment. Sacroiliac joints are intact. There is osteopenia. IMPRESSION: Multiple compression fractures as above. There is probably progression of the fractures i n the lower thoracic spine compared to old chest x-ray of 03/25/2017.
--- NOTE | 2019-01-30 19:35 | XR ---
EXAMINATION TYPE: XR knee 4V RT DATE OF EXAM: 01/30/2019 COMPARISON: NONE HISTORY: Knee pain TECHNIQUE: 4 views FINDINGS: There is small knee joint effusion. There is narrowing of the medial joint space. I see no acute fracture nor dislocation. There is vascular calcification. IMPRESSION: There is some osteoarthritis medial joint space. Small joint effusion. No acute bony abno rmality.
--- NOTE | 2019-01-30 20:28 | XR ---
EXAMINATION TYPE: XR Hip RT and AP Pelvis DATE OF EXAM: 01/30/2019 COMPARISON: NONE HISTORY: Right hip pain. Fall. TECHNIQUE: A single AP view of the pelvis is obtained. Two views of the right hip are obtained. FINDINGS: Pelvic ring appears intact. There is some deformity of the right femoral neck related to ac chene[place] impacted subcapital fracture. There is no dislocation. Sacroiliac joints are intact. IMPRESSION: Acute subcapital fracture right femur.
[2019-01-30] MEDS ORDERED: ACETAMINOPHEN TAB 325 MG TAB PO PRN (21:03)
[2019-01-30] MEDS ORDERED: NALOXONE 0.4 MG/ML 1 ML VIAL IV PRN (21:03)
[2019-01-30] MEDS ORDERED: MORPHINE SULFATE 2 MG/ML SYRINGE IV PRN (21:03)
[2019-01-30] MEDS ORDERED: ONDANSETRON 4 MG/2 ML VIAL IVP PRN (21:03)
[2019-01-30] MEDS: SODIUM CHLORIDE 0.9% 1,000 ML IV SCH (21:19)
[2019-01-30] MEDS ORDERED: METHOCARBAMOL 500 MG TAB PO PRN (23:07)
[2019-01-30] MEDS ORDERED: IPRATROPIUM-ALBUTEROL 3 ML NEB INHALATION PRN (23:27)
[2019-01-31] MEDS: AMANTADINE HCL 100 MG CAP PO SCH ×3 (01:49→21:02)
[2019-01-31] MEDS: CARBIDOPA-LEVODOPA 25-100 MG 1 EACH TAB PO SCH ×4 (01:49→21:02)
[2019-01-31] MEDS: HEPARIN SODIUM,PORCINE 5,000 UNIT/ML 1 ML VIAL SQ SCH ×2 (07:07→07:54)
[2019-01-31] MEDS: CHOLECALCIFEROL 400 UNIT TAB PO SCH (07:53)
[2019-01-31] MEDS: ATORVASTATIN 10 MG TAB PO SCH (07:53)
[2019-01-31] MEDS: LEVOTHYROXINE 125 MCG TAB PO SCH (07:53)
[2019-01-31] MEDS: LISINOPRIL 20 MG TAB PO SCH (07:54)
[2019-01-31 08:10] LABS: Basophils # (A) 0.1 k/uL (0-0.2); Basophils % (A) 0 %; Eosinophils # (A) 0.9 k/uL (0-0.7); Eosinophils % (A) 7 %; HCT 36.9 % (39.0-53.0); HGB 11.8 gm/dL (13.0-17.5); Lymphocytes # (A) 1.1 k/uL (1.0-4.8); Lymphocytes % (A) 10 %; MCH 32.5 pg (25.0-35.0); MCHC 32.1 g/dL (31.0-37.0); MCV 101.2 fL (80.0-100.0); Macrocytosis Slight; Mean Platelet Volume 7.8; Monocytes # (A) 1.1 k/uL (0-1.0); Monocytes % (A) 10 %; Neutrophils # (A) 8.4 k/uL (1.3-7.7); Neutrophils % (A) 72 %; Platelet Count 178 k/uL (150-450); RBC 3.65 m/uL (4.30-5.90); RDW 13.9 % (11.5-15.5); WBC 11.7 k/uL (3.8-10.6)
[2019-01-31] MEDS: IPRATROPIUM-ALBUTEROL 3 ML NEB INHALATION SCH ×3 (08:28→19:59)
[2019-01-31 08:29] LABS: Potassium 3.7 mmol/L (3.5-5.1)
--- NOTE | 2019-01-31 09:03 | CONS ---
CONSULTATION DATE OF SERVICE: 01/30/2019. REASON FOR CONSULTATION: Advice regarding hypertension and multiple medical issues requested by Dr. Schneider. HISTORY OF PRESENT ILLNESS: This 83-year-old gentleman with a past medical history of hyperlipidemia, hypertension, DJD, history of bladder surgery, history of back problems, being followed by Dr. Keaton Morales in the outpatient setting apparently fell while in the year and the patient sustained acute fracture and the patient was admitted for further evaluation and treatment. There is no history of any fever. There is no history of headache, loss of consciousness, seizures. The chest x-ray showed minimal abnormalities of the right lower lung forbes, possibly atelectasis, possibly minimal fluid, but patient did not have any history of COPD or exposure of any allergens or fumes in the past. There is no history of any fever, rigors. No history of headache, loss of consciousness, seizures. No history of chest pain or palpitations. PAST MEDICAL HISTORY: History of hypertension, hyperlipidemia, history of DJD, history of hypothyroidism, history of bladder cancer surgery. MEDICATIONS: Medications prior to admission include home medications are: 1. Ultram 50 mg q.6 p.r.n. 2. Requip 0.25 mg q.h.s. 3. Robaxin 500 mg t.i.d. p.r.n. 4. Mevacor 40 mg p.o. daily. 5. Lisinopril 40 mg daily. 6. Synthroid 125 mcg p.o. daily. 7. Vitamin D3, 400 units daily. 8. Carbidopa/Levodopa 25/100 one p.o. t.i.d. 9. Aspirin 81 mg daily. 10.Amantadine 100 mg p.o. b.i.d. ALLERGIES: Allergies are none. FAMILY HISTORY: History of myocardial infarction in the family. SOCIAL HISTORY: No history of smoking. No history of alcohol intake. The patient is retired. REVIEW OF SYSTEMS: ENT: Diminished hearing and diminished vision. CARDIOVASCULAR SYSTEM: No angina. RESPIRATORY SYSTEM; No cough. GI: No nausea. : No dysuria. NERVOUS SYSTEM: No numbness or weakness. ALLERGIES/IMMUNOLOGY: No asthma. MUSCULOSKELETAL: As mentioned earlier. HEMATOLOGY/ONCOLOGY: No history of anemia. ENDOCRINE: Hypothyroidism. CONSTITUTIONAL: As mentioned earlier. DERMATOLOGY: Negative. RHEUMATOLOGY: Negative. PSYCHIATRY: Negative. PHYSICAL EXAMINATION: The patient is alert and oriented x3. Pulse is 83, blood pressure 128/78, respiration 14, temperature normal, pulse ox 97% on room air. HEENT: Conjunctivae normal. Oral mucosa moist. NECK: No jugular venous distention. No carotid bruit. No lymph node enlargement. CARDIOVASCULAR: S1, S2 muffled. RESPIRATORY: Breath sounds diminished at the bases. No rhonchi. No crackles. ABDOMEN: Soft, nontender. No mass palpable. LEGS: Status post right leg fracture. NERVOUS SYSTEM: Higher function as mentioned earlier. Moves all 4 limbs. No focal deficits. LYMPHATICS: No lymphadenopathy of the neck, axillae or groin. SKIN: No ulcer, rash or bleeding. JOINTS: No active deforming arthropathy. LABS: Labs are at this time: X-rays personally I reviewed and subcapital right fracture of the right femur noted. The patient is alert and oriented x3. Pulse is 83, blood pressure 128/78, respiration 14, temperature normal, pulse ox 97% on room air. HEENT: Conjunctivae normal. Oral mucosa moist. NECK: No jugular venous distention. No carotid bruit. No lymph node enlargement. CARDIOVASCULAR: S1, S2 muffled. RESPIRATORY: Breath sounds diminished at the bases. No rhonchi. No crackles. ABDOMEN: Soft, nontender. No mass palpable. LEGS: Status post right leg fracture. Right leg is externally rotated. NERVOUS SYSTEM: Higher function as mentioned earlier. Moves all 4 limbs. No focal deficits. LYMPHATICS: No lymphadenopathy of the neck, axillae or groin. SKIN: No ulcer, rash or bleeding. JOINTS: No active deforming arthropathy. LABS: At this time, x-rays I personally reviewed and subcapital right fracture of the right femur noted. The chest x-ray which was again personally reviewed showed right basilar atelectasis. Creatinine 1.49. WBC 17.4. ASSESSMENT: 1. Status post fall and right hip fracture. 2. Right minimal pleural effusion versus atelectasis. 3. Increased WBC. 4. Increased MCV. 5. Parkinson disease. 6. Increased creatinine with possible chronic kidney disease stage 3. 7. Hypertension. 8. Hyperlipidemia. 9. Degenerative joint disease. 10.Hypothyroidism. 11.History of diverticulitis. 12.History of degenerative joint disease. 13.History of bladder surgery. RECOMMENDATIONS AND DISCUSSION: This 83-year-old gentleman presented after fracture, is medically stable at this time. I recommend EKG and also recommend bronchodilators. I would recommend repeat labs and I would also recommend a 2D echo with Doppler and also BNP to complete the workup. Other than that, continue with cautious IV fluids. Further recommendations to follow. The patient may continue with medication for Parkinson's. The patient may be asked to follow with Dr. Morales closely after discharge. Thank you Dr. Schneider for letting us participate in the care of this patient. Patient is stable.. cleared the pt for surgery. MMODL / IJN: [id number] / LUISA
--- NOTE | 2019-01-31 10:10 | P.HPOR ---
History of Present Illness H&P Date: 01/31/19 This patient is an 83-year-old male with past medical history of Parkinson's disease and bladder cancer that presented to [facility] ED yesterday after a fall. The patient states he fell in his driveway when he lost his footing, he landed directly onto his right knee. The patient states he experienced immediate pain in the right knee and the right elbow, he was unable to bear weight or ambulate. The patient states his family helped him up off the driveway, and an ambulance was called. On arrival to the ED, the patient was found to have a right subcapital femoral neck fracture. The patient requested care from [facility], as he is an established patient of Dr. Byrne, therefore the patient was admitted under the care of Dr. Schneider with consults placed to internal medicine for surgical clearance and medical management. The patient notes that he has a walker at home that he is supposed to ambulate with, although he rarely uses it. He states he was not using a walker when he fell. The patient is an established patient of Dr. Byrne, he underwent a kyphoplasty T12 on 05/18/18 and has been doing well in this regard. The patient states he is having no issues with his back prior to the fall, he states his back is not painful currently. He denies numbness or tingling down the bilateral lower extremities. He denies chest pain, shortness of breath, nausea, vomiting. Past Medical History Past Medical History: Cancer, Hyperlipidemia, Hypertension, Osteoarthritis (OA), Thyroid Disorder Additional Past Medical History / Comment(s): BLADDER CANCER SURGERY 2011, HYPOTHYROID, MURMUR YRS AGO, DIVERTICULAR DX, HEMORRHOIDS, ARTHRITIS ESPECIALLY IN HANDS, R HAND TREMOR. History of Any Multi-Drug Resistant Organisms: None Reported Past Surgical History: Bladder Surgery Additional Past Surgical History / Comment(s): CYSTOCOPY WITH BLADDER TUMOR REMOVED, COLONOSCOPY, BILATERAL CATARACT REMOVAL WITH LENS IMPLANTS. Past Anesthesia/Blood Transfusion Reactions: No Reported Reaction Past Psychological History: No Psychological Hx Reported Additional Psychological History / Comment(s): PT'S SISTER RESIDES WITH HIM. HE STARTED USING A WALKER YESTERDAY. HE DRIVES AND IS INDEPENDENT. Smoking Status: Never smoker Past Alcohol Use History: None Reported Past Drug Use History: None Reported - Past Family History Father Family Medical History: Myocardial Infarction (OR) Additional Family Medical History / Comment(s): FATHER HAD OR'S PRIOR TO AGE 60YRS. HE AT 62 FROM "HEART PROBLEMS." Mother Family Medical History: COPD Additional Family Medical History / Comment(s): MOTHER LIVED INTO HER 90'S. Medications and Allergies Home Medications Medication Instructions Recorded Confirmed Type Aspirin 81 mg PO DAILY 12/11/13 01/30/19 History Levothyroxine Sodium [Synthroid] 125 mcg PO DAILY 12/11/13 01/30/19 History Lisinopril 40 mg PO DAILY 12/11/13 01/30/19 History Lovastatin [Mevacor] 40 mg PO DAILY 12/11/13 01/30/19 History traMADol HCL [Ultram] 50 mg PO Q6HR PRN 05/11/18 01/30/19 History Amantadine HCl [Symmetrel] 100 mg PO BID 01/30/19 01/30/19 History Carbidopa-Levodopa 25-100 mg 1 tab PO TID 01/30/19 01/30/19 History [Sinemet 25-100] Cholecalciferol [Vitamin D3] 400 unit PO DAILY 01/30/19 01/30/19 History Methocarbamol [Robaxin] 500 mg PO TID PRN 01/30/19 01/30/19 History rOPINIRole HCL [Requip] 0.25 mg PO HS 01/30/19 01/30/19 History Allergies Allergy/AdvReac Type Severity Reaction Status Date / Time No Known Allergies Allergy Verified 01/30/19 18:57 Physical Examination On exam, the patient is sitting up in bed in no apparent distress. Patient is alert and oriented x3. His head appears atraumatic and normocephalic. His breathing appears nonlabored. The right lower extremity is abducted and externally rotated. There is mild pain on palpation of the right hip. There is no erythema, ecchymosis, skin discoloration of the right hip. There are no open wounds or lacerations. On inspection of the right knee, there is superficial abrasions on the anterior knee, there is a clean and dry dressing that is intact. Patient has no pain with passive range of motion of the knee. Patient is able to dorsiflex and plantarflex the ankle without issue or pain. Dorsalis pedis pulse palpable, right lower extremity is warm and well-perfused. Neurovascular and circulatory status is intact of the right lower extremity. On inspection the right elbow, there are superficial abrasions that are covered with a clean, dry, intact dressing. Patient has no pain with passive range of motion of the elbow. The hand and fingers are warm and well-perfused with brisk capillary refill. Radial pulse palpable. Neurovascular and circulatory status is intact of the right upper extremity. Results Right hip and pelvis x-ray 01/30/19: Subcapital femoral neck fracture. Right knee x-ray 01/30/19: Narrowing of medial joint space. No acute fractures. Right elbow x-ray 01/30/2019: No acute fractures. No acute bony abnormalities. - Labs Labs: Abnormal Lab Results - Last 24 Hours (Table) 01/30/19 01/30/19 01/30/19 Range/Units 18:10 18:13 18:15 WBC 17.4 H (3.8-10.6) k/uL RBC 4.27 L (4.30-5.90) m/uL Hgb (13.0-17.5) gm/dL Hct (39.0-53.0) % MCV 100.9 H (80.0-100.0) fL Neutrophils # 14.7 H (1.3-7.7) k/uL Lymphocytes # 0.6 L (1.0-4.8) k/uL Monocytes # 1.8 H (0-1.0) k/uL Eosinophils # (0-0.7) k/uL BUN 30 H (9-20) mg/dL Creatinine 1.49 H (0.66-1.25) mg/dL Glucose 140 H (74-99) mg/dL POC Glucose (mg/dL) 133 H (75-99) mg/dL 01/31/19 01/31/19 Range/Units 07:38 07:38 WBC 11.7 H (3.8-10.6) k/uL RBC 3.65 L (4.30-5.90) m/uL Hgb 11.8 L (13.0-17.5) gm/dL Hct 36.9 L (39.0-53.0) % MCV 101.2 H (80.0-100.0) fL Neutrophils # 8.4 H (1.3-7.7) k/uL Lymphocytes # (1.0-4.8) k/uL Monocytes # 1.1 H (0-1.0) k/uL Eosinophils # 0.9 H (0-0.7) k/uL BUN 24 H (9-20) mg/dL Creatinine (0.66-1.25) mg/dL Glucose (74-99) mg/dL POC Glucose (mg/dL) (75-99) mg/dL H & H 01/30/19 01/31/19 Range/Units 18:10 07:38 Hgb 13.7 11.8 L (13.0-17.5) gm/dL Hct 43.0 36.9 L (39.0-53.0) % Coagulation 01/30/19 Range/Units 18:15 INR 1.0 (<1.2) Result Diagrams: 01/31/19 07:38 01/31/19 07:38 Assessment and Plan Assessment: Right subcapital femoral neck fracture. Superficial abrasions of the right elbow and right knee. Recent history of kyphoplasty T12 with Dr. Byrne. Plan: - We will plan on a right hip hemiarthroplasty this afternoon with Dr. Schneider, pending medical clearance and consent. - Strict non-weight bearing of the right lower extremity. Ice and elevate right hip for pain and swelling control. - Continue current pain management. - NPO diet. Patient discussed with Dr. Schneider.
--- NOTE | 2019-01-31 12:30 | ECHOF ---
Referral Reason:chf?? MEASUREMENTS -------- HEIGHT: 175.3 cm WEIGHT: 79.8 kg BP: 122/74 IVSd: 1.2 cm (0.6 - 1.1) LVIDd: 4.3 cm (3.9 - 5.3) LVPWd: 1.1 cm (0.6 - 1.1) IVSs: 1.4 cm LVIDs: 2.4 cm LVPWs: 1.9 cm LAESV Index (A-L): 27.03 ml/m Ao Diam: 3.0 cm (2.0 - 3.7) AV Cusp: 0.9 cm (1.5 - 2.6) LA Diam: 4.0 cm (2.7 - 3.8) MV EXCURSION: 16.312 mm (> 18.000) MV EF SLOPE: 81 mm/s (70 - 150) EPSS: 0.6 cm MV E Dany: 0.96 m/s MV DecT: 217 ms MV A Dany: 0.70 m/s MV E/A Ratio: 1.37 AV maxP.98 mmHg AV meanP.33 mmHg AR PHT: 421 ms RAP: 5.00 mmHg RVSP: 36.80 mmHg FINDINGS -------- Sinus rhythm. This was a technically good study. Pt unable to turn due to hip fx. The left ventricular size is normal. There is borderline concentric left ventricular hypertrophy. Overall left ventricular systolic function is normal with, an EF between 55 - 60 %. Normal LAP Gra de 1 Diastolic Dysfunction. The right ventricle is normal in size. The left atrial size is normal. Normal LA size by volume 22+/-6 ml/m2. The right atrial size is normal. Aortic valve is trileaflet and is severely thickened. Trace amount of aortic regurgitation. Ther e is severe aortic stenosis present. Peak/mean gradient across the Aortic Valve is 81.98mmHg / 60.3 3mmHg. The mitral valve is normal. Mild mitral regurgitation is present. Mild tricuspid regurgitation present. There is mild pulmonary hypertension. The right ventricular systolic pressure, as measured by Doppler, is 36.80mmHg. There is no pulmonic regurgitation present. The aortic root size is normal. IVC Not well visulized. There is no pericardial effusion. CONCLUSIONS -------- 1. Sinus rhythm. 2. This was a technically good study. 3. Pt unable to turn due to hip fx. 4. The left ventricular size is normal. 5. There is borderline concentric left ventricular hypertrophy. 6. Overall left ventricular systolic function is normal with, an EF between 55 - 60 %. 7. Normal LAP Grade 1 Diastolic Dysfunction. 8. The right ventricle is normal in size. 9. The left atrial size is normal. 10. Normal LA size by volume 22+/-6 ml/m2. 11. The right atrial size is normal. 12. Aortic valve is trileaflet and is severely thickened. 13. Trace amount of aortic regurgitation. 14. There is severe aortic stenosis present. 15. Peak/mean gradient across the Aortic Valve is 81.98mmHg / 60.33mmHg. 16. The mitral valve is normal. 17. Mild mitral regurgitation is present. 18. Mild tricuspid regurgitation present. 19. There is mild pulmonary hypertension. 20. The right ventricular systolic pressure, as measured by Doppler, is 36.80mmHg. 21. There is no pulmonic regurgitation present. 22. The aortic root size is normal. 23. IVC Not well visulized. 24. There is no pericardial effusion. RECYCLE COORDINATOR: Stephy Roger RDCS
[2019-01-31] MEDS ORDERED: DEXAMETHASONE SOD PHOS (MDV) 100 MG/10 ML VIAL IV ONE (14:37)
[2019-01-31] MEDS ORDERED: LACTATED RINGERS 1,000 ML IV ONE (14:38)
[2019-01-31] MEDS ORDERED: VECURONIUM 10 MG VIAL IV ONE (14:46)
[2019-01-31] MEDS ORDERED: PHENYLEPHRINE-0.9% NACL SYG 1 MG/10 ML SYRINGE ONE (14:46)
[2019-01-31] MEDS ORDERED: PROPOFOL 10 MG/ML 20 ML VIAL IV ONE (14:46)
[2019-01-31] MEDS ORDERED: fentaNYL (PF) 50 MCG/ML 2 ML AMP ONE (14:46)
[2019-01-31] MEDS ORDERED: GLYCOPYRROLATE 0.2 MG/ML 2 ML VIAL ONE (14:46)
[2019-01-31] MEDS ORDERED: LIDOCAINE 1% INJ 10MG/ML (20 ML MDV) ONE (14:46)
[2019-01-31] MEDS ORDERED: NEOSTIGMINE 1 MG/ML 10 ML VIAL ONE (14:46)
[2019-01-31] MEDS ORDERED: SUCCINYLCHOLINE CHLORIDE 100 MG/5 ML SYR IV ONE (14:46)
[2019-01-31] MEDS: SODIUM CHLORIDE 0.9% 1,000 ML IV SCH ×2 (14:48→17:46)
[2019-01-31] MEDS ORDERED: ceFAZolin 3,000 MG in SODIUM CHLORIDE 0.9% IRRIGATIO 3,000 ML IRRIGATION ONE (15:00)
[2019-01-31] MEDS ORDERED: SODIUM CHLORIDE 0.9% 50 ML with ceFAZolin 2,000 MG IV ONE ×2 (15:15)
[2019-01-31] MEDS ORDERED: HYDROcodone/APAP 5-325MG 1 EACH TAB PO PRN (17:12)
[2019-01-31] MEDS ORDERED: hydrOXYzine PAMOATE 25 MG CAP PO PRN (17:12)
[2019-01-31] MEDS ORDERED: HYDROmorphone 0.5 MG/0.5 ML SYRINGE IVP PRN ×3 (17:12)
--- NOTE | 2019-01-31 17:21 | P.OP ---
Date of Procedure: 01/31/19 Preoperative Diagnosis: 1. Right subcapital femoral neck fracture 2. Parkinson's disease 3. Aortic stenosis 4. History of prior fragility fracture Postoperative Diagnosis: Same Procedure(s) Performed: Right hip hemiarthroplasty Anesthesia: FITZ Surgeon: Robinson Schneider Learning Support Specialist #1: Mayito Norwood Estimated Blood Loss (ml): 250 IV fluids (ml): 600 Urine output (ml): 200 Pathology: other (Femoral head to pathology) Condition: stable Disposition: PACU Indications for Procedure: The patient is a very pleasant 83-year-old male with multiple medical problems including Parkinson's disease, aortic stenosis, and prior fragility fracture who sustained a ground-level fall resulting in right hip pain and an inability to ambulate. He was brought to the emergency department where x-rays showed a ri ght subcapital femoral neck fracture. The patient was admitted under my care. He was seen and evaluated by internal medicine who cleared him for surgery. He also had an echocardiogram area I met with the patient and his sister's discuss treatment. My recommendation was to perform a cemented hip hemiarthroplasty to facilitate early movement and early rapid weight-bearing. We discussed the pote ntial risks and Locations of surgery including but not limited to risk of anesthesia, superficial infection, deep infection, delayed wound healing, damage to local blood vessels or nerves, intraoperative fracture, postoperative fracture, hip dislocation, leg length inequality, chronic pain, chronic swelling, and inability to regain preinjury level of function, DVT, PE, acute coronary event, other medical complications, and possibly loss of life or limb. The patient voiced his understanding of these potential complications and the family also did not is that other less common complications are possible. They provided their verbal and written consent to go forward with surgery. Description of Procedure: The patient was identified and operative holding and the correct right leg was marked by initials. I reviewed the consent form with the patient and his sister's. All their questions were answered. The patient was then brought back to the operating room by anesthesia. He was positioned on the OR table where general anesthetic was administered. He was then positioned on the OR table in the lateral decubitus position with the unaffected left side down and the affected right side up. He was secured to the OR table with a Montral frame. Prior to being placed in the Montral frame a fully catheter was placed. All bony prominences were padded including an axillary roll. The right leg was then prepped and draped in standard sterile fashion. He was given preoperative antibiotics. A timeout was then performed identifying the correct patient, operative extremity and procedure. I began by outlining the skin incision for a posterolateral approach to the hip. Skin incision made with a scalpel. Dissection was carried down carefully to subcutaneous tissue with electrocautery. The IT band was split distally in line with the femur and proximally was angled posteriorly 45. The muscle fibers of the gluteus lolly were bluntly spread. A Charnley tractor was placed. Remnants of the trochanteric percent were elevated off the posterior femur. The piriformis and short external rotators were elevated off the posterior femur with electrocautery. The posterior hip capsule was identified and teed. There was a large hematoma within the capsule. The femoral neck was broken in the subcapital region. A microsagittal saw was used to make a neck cut 1 thumb breath above the lesser trochanter. A corkscrew was used to remove the femoral head. This passed off to the back table, sized, and sent to pathology. A box osteotome was used to gain entrance the proximal femur. A canal finder was placed. I then sequentially reamed in 1 mm increments until a 12 mm reamer generated chatter. I then sequentially broached in 1 mm increments up to a 12 mm broach felt stable. A calcar planar was used to bring the neck cut flush with the broach. I then trialed with a standard offset 54 mm head. The hip was brought through full range of motion and felt to be stable. The hip was carefully dislocated using a bone hook. All trial implants were removed. A moist Ray-Soto sponge was placed in the acetabulum. The proximal canal the femur was thoroughly irrigated and a cement restrictor was placed distally. Implants were dispensed. A collared size 12 cemented stem was dispensed. Cement was pressurized in the proximal femur. The final stem was gently tapped into place holding the stem in anteversion until the cement mantle had hardened. Excess cement was removed. The Ray-Soto was removed from the acetabulum. I once again carefully trialed with a standard offset 54 mm head which felt stable. The hip was dislocated for a final time. The wound was thoroughly irrigated. The Estevez taper was cleaned and a 54 mm standard offset head was gently tapped into place. The hip was carefully reduced and again thoroughly irrigated. He was brought through range of motion and was found to be stable. The posterior capsule was repaired using interrupted 0 Vicryl stitches. The IT band was closed first with an interrupted 0 Vicryl and then a running Quill stitch. The deep subcu was reapproximated using 0 Vicryl. The superficial subcutaneous tissue was closed with 2-0 Vicryl interrupted stitches. The skin was closed with a running Monocryl Quill subcuticular stitch. All instrument, sponge, and sharp counts were correct. A sterile dressing was applied. The patient was taken out of the [facility] frame, transferred to a gurney, and extubated. A hip abduction pillow was placed. The patient was then brought to the recovery room having failed procedure well. Mayito Norwood PA-C was required as a skilled acquisitions assistant for patient positioning, surgical exposure, retraction, placement of implant, reduction of hip, closure of wound, and application of dressing. Plan: The patient is going to be re-admitted to the floor. He can weight-bear as tolerated on his right hip. He is to follow posterior hip precautions for 6 weeks. He'll be treated with DVT or prophylaxis Lovenox 40 mg daily 4 weeks. Internal medicine for perioperative medical management. Anticipate discharge to subacute rehab or care home.
[2019-01-31] MEDS: HYDROmorphone 1 MG/ML 1 ML SYRINGE IVP ONE ×2 (17:27→17:35)
--- NOTE | 2019-01-31 17:28 | XR ---
EXAMINATION TYPE: XR Hip Limited RT DATE OF EXAM: 01/31/2019 COMPARISON: 01/30/2019 HISTORY: Postop TECHNIQUE: Single view FINDINGS: There is a right hip prosthesis. Components are in anatomic position. Right hemipelvis is i ntact. IMPRESSION: No complicating process seen.
[2019-01-31 19:07] LABS: Basophils % (A) 0 %; Eosinophils # (A) 0.3 k/uL (0-0.7); Eosinophils % (A) 2 %; HCT 35.6 % (39.0-53.0); HGB 11.7 gm/dL (13.0-17.5); Lymphocytes # (A) 0.3 k/uL (1.0-4.8); Lymphocytes % (A) 2 %; MCH 33.1 pg (25.0-35.0); MCHC 32.8 g/dL (31.0-37.0); MCV 100.9 fL (80.0-100.0); Macrocytosis Slight; Mean Platelet Volume 9.7; Monocytes # (A) 0.5 k/uL (0-1.0); Monocytes % (A) 4 %; Neutrophils # (A) 12.7 k/uL (1.3-7.7); Neutrophils % (A) 92 %; RBC 3.53 m/uL (4.30-5.90); RDW 14.7 % (11.5-15.5); WBC 13.8 k/uL (3.8-10.6)
[2019-01-31] MEDS: SENNOSIDES-DOCUSATE SODIUM 1 EACH TAB PO SCH (21:02)
[2019-01-31] MEDS: ceFAZolin IN SWFI 2 GM/20 ML SYRINGE IVP SCH (23:11)
--- NOTE | 2019-01-31 23:27 | PN ---
PROGRESS NOTE This 83-year-old gentleman who was admitted after hip fracture underwent right hip hemiarthroplasty. The patient also was thought to have a minimal right pleural effusion versus atelectasis. The 2D echo with Doppler showed ejection fraction of 55% to 60%. There is no evidence of CHF at this time. No chest pain. No palpitations. Patient is drowsy after surgery. On exam, pulse 70, blood pressure 131/69, respiration 14, temperature 98.2, pulse ox 94% on 2 L. HEENT: Conjunctivae normal. NECK: No jugular venous distention. CARDIOVASCULAR SYSTEM: S1, S2 muffled. RESPIRATORY SYSTEM: Breath sounds diminished at the bases. A few scattered rhonchi. No crackles. ABDOMEN: Soft. LEGS: Status post surgery. NERVOUS SYSTEM: No focal deficit. LABS: WBC 13.8, hemoglobin 11.7. Creatinine 1.18. ASSESSMENT: 1. Status post fall and right hip fracture and right hip hemiarthroplasty. 2. Right minimal pleural effusion versus atelectasis. 3. Increased white count. 4. Increased mean corpuscular volume. 5. Parkinson's disease. 6. Increased creatinine with possible chronic kidney disease, stage III. 7. Hypertension. 8. Hyperlipidemia. 9. Degenerative joint disease. 10.Hypothyroidism. 11.History of diverticulitis. 12.History of degenerative joint disease. 13.History of bladder surgery. RECOMMENDATIONS AND DISCUSSION: I recommend to continue current medications, continue with the monitoring, symptomatic treatment Continue the bronchodilators. Continue the rest of the medications. Repeat chest x-ray in the morning. Incentive spirometry. DVT prophylaxis. Will follow the patient closely with Orthopedic Surgery. Further recommendations to follow. MMODL / IJN: [id number] / MTDD
[2019-02-01 02:53] LABS: Appearance,Urine Clear (Clear); Bilirubin,Urine Negative (Negative); Blood,Urine Moderate (Negative); Color,Urine Yellow; Glucose,Urine (UA) Trace (Negative); Ketones,Urine Negative (Negative); Leukocyte Esterase,Urine Large (Negative); Mucus,Urine Rare /hpf; Nitrite,Urine Negative (Negative); Protein,Urine Negative (Negative); RBC,Urine 49 /hpf (0-5); Specific Gravity,Urine 1.025 (1.001-1.035); Squamous Epithelial Cell,Urine <1 /hpf (0-4); Urobilinogen,Urine <2.0 mg/dL (<2.0); WBC,Urine 59 /hpf (0-5)
[2019-02-01] MEDS: LEVOTHYROXINE 125 MCG TAB PO SCH (05:25)
[2019-02-01] MEDS: IPRATROPIUM-ALBUTEROL 3 ML NEB INHALATION SCH ×3 (08:22→20:40)
--- NOTE | 2019-02-01 08:43 | XR ---
EXAMINATION TYPE: XR chest 1V portable DATE OF EXAM: 02/01/2019 COMPARISON: 01/30/2019 HISTORY: Abnormal x-ray TECHNIQUE: Single frontal view of the chest is obtained. FINDINGS: Persistent right lower lobe infiltrate and small effusion. No pneumothorax. Arthropathy of the shoulders. Diffuse osteopenia. Mild cardiomegaly. Left lung clear. IMPRESSION: Stable right lower lobe infiltrate and small effusion.
[2019-02-01] MEDS ORDERED: ENOXAPARIN 40 MG/0.4 ML SYRINGE SQ SCH (09:00)
--- NOTE | 2019-02-01 09:05 | P.PN ---
Subjective Progress Note Date: 02/01/19 This is an 83-year-old male who is status post right hip hemiarthroplasty. Patient's past medical history is significant for Parkinson's disease, hyperlipidemia and hypertension. This is postoperative day #1 and patient is seen and evaluated at bedside. Patient states that his pain is well controlled. Patient states that he has not been up and walking with physical therapy yet. Patient denies any new symptoms or complaints. Patient denies any fever/chills, numbness, weakness, tingling, abdominal pain, shortness of breath or chest pain. Objective - Vital Signs Vital signs: Vital Signs Temp 97.9 F 02/01/19 07:00 Pulse 82 02/01/19 08:33 Resp 16 02/01/19 07:00 BP 114/68 02/01/19 07:00 Pulse Ox 98 02/01/19 08:22 Intake & Output 01/31/19 02/01/19 02/01/19 18:59 06:59 18:59 Intake Total 901 240 Output Total 725 650 Balance 176 -410 Intake: IV 901 Oral 240 Output: Urine 475 650 Estimated Blood Loss 250 Other: Voiding Method Urinal Indwelling Catheter # Voids 1 - Exam Vital signs are stable. Patient is in no acute distress and is alert and oriented 3. Calf is soft and nontender to palpation. Dressing is clean, dry, and intact. Patient has full foot and ankle motion without pain or difficulty. Neurovascular status and circulatory status are intact. - Labs CBC & Chem 7: 01/31/19 18:49 01/31/19 07:38 Labs: Abnormal Lab Results - Last 24 Hours (Table) 01/31/19 02/01/19 Range/Units 18:49 01:00 WBC 13.8 H (3.8-10.6) k/uL RBC 3.53 L (4.30-5.90) m/uL Hgb 11.7 L (13.0-17.5) gm/dL Hct 35.6 L (39.0-53.0) % MCV 100.9 H (80.0-100.0) fL Neutrophils # 12.7 H (1.3-7.7) k/uL Lymphocytes # 0.3 L (1.0-4.8) k/uL Urine Glucose (UA) Trace H (Negative) Urine Blood Moderate H (Negative) Ur Leukocyte Esterase Large H (Negative) Urine RBC 49 H (0-5) /hpf Urine WBC 59 H (0-5) /hpf Urine Mucus Rare H (None) /hpf Assessment and Plan (1) S/P hip hemiarthroplasty Current Visit: Yes Status: Acute Code(s): Z96.649 - PRESENCE OF UNSPECIFIED ARTIFICIAL HIP JOINT SNOMED Code(s): 541047861 (2) Fall Current Visit: Yes Status: Acute Code(s): W19.XXXA - UNSPECIFIED FALL, INI TIAL ENCOUNTER SNOMED Code(s): 3056186 (3) Hip fracture Current Visit: Yes Status: Acute Code(s): S72.009A - FRACTURE OF UNSP PART OF NECK OF UNSP FEMUR, INIT SNOMED Code(s): 964311398 (4) Closed right hip fracture Current Visit: Yes Status: Acute Code(s): S72.001A - FRACTURE OF UNSP PART OF NECK OF RIGHT FEMUR, INIT SNOMED Code(s): 129496979 Plan: Continue routine postop care and pain control. Continue hip precautions with abductor pillow for 6 weeks. Continue anticoagulation with Lovenox 30 mg daily. Weightbearing as tolerated with a walker. Leave dressing in place for 10 days. Appreciate input from medicine. Likely discharged to [facility] in the next 1-2 days.
[2019-02-01] MEDS: HYDROcodone/APAP 5-325MG 1 EACH TAB PO PRN ×2 (10:14→16:14)
[2019-02-01] MEDS: LISINOPRIL 20 MG TAB PO SCH (10:14)
[2019-02-01] MEDS: CARBIDOPA-LEVODOPA 25-100 MG 1 EACH TAB PO SCH ×3 (10:14→22:05)
[2019-02-01] MEDS: ATORVASTATIN 10 MG TAB PO SCH (10:15)
[2019-02-01] MEDS: AMANTADINE HCL 100 MG CAP PO SCH ×2 (10:15→20:19)
[2019-02-01] MEDS: CHOLECALCIFEROL 400 UNIT TAB PO SCH (10:15)
[2019-02-01] MEDS: ceFAZolin IN SWFI 2 GM/20 ML SYRINGE IVP SCH (11:31)
[2019-02-01] MEDS: SODIUM CHLORIDE 0.9% 1,000 ML IV SCH ×2 (16:17→22:06)
[2019-02-01] MEDS: SENNOSIDES-DOCUSATE SODIUM 1 EACH TAB PO SCH (20:19)
[2019-02-02] MEDS: LEVOTHYROXINE 125 MCG TAB PO SCH (06:20)
[2019-02-02] MEDS: IPRATROPIUM-ALBUTEROL 3 ML NEB INHALATION SCH ×3 (07:54→19:46)
[2019-02-02] MEDS: HYDROcodone/APAP 5-325MG 1 EACH TAB PO PRN ×2 (08:21→22:26)
[2019-02-02] MEDS: LISINOPRIL 20 MG TAB PO SCH (08:21)
[2019-02-02] MEDS: CARBIDOPA-LEVODOPA 25-100 MG 1 EACH TAB PO SCH ×3 (08:21→22:20)
[2019-02-02] MEDS: ATORVASTATIN 10 MG TAB PO SCH (08:22)
[2019-02-02] MEDS: AMANTADINE HCL 100 MG CAP PO SCH ×2 (08:22→20:28)
[2019-02-02] MEDS: CHOLECALCIFEROL 400 UNIT TAB PO SCH (08:22)
[2019-02-02] MEDS: RIVAROXABAN 10 MG TAB PO SCH (08:25)
--- NOTE | 2019-02-02 08:29 | PN ---
PROGRESS NOTE DATE OF SERVICE: 02/01/2019. This 83-year-old gentleman who was admitted after a fall and right hip fracture, had right hip hemiarthroplasty. Patient being closely monitored. No chest pain. No palpitations. No fever. ECF rehab is being planned. EXAM: Alert and oriented x3. The pulse is 87. Blood pressure 105/58. Respirations 17. Temperature 98 degrees, pulse ox 94% on room air. HEENT: Conjunctivae normal. NECK: No jugular venous distention. CARDIOVASCULAR: S1, S2 muffled. RESPIRATION: Breath sounds diminished in the bases. A few scattered rhonchi and crackles. ABDOMEN is soft, nontender. LEGS are no edema, no swelling. LABS: WBC 13.2, hemoglobin 11.7. UA shows significant WBCs. ASSESSMENT: 1. Status post fall and right hip fracture, right hip hemiarthroplasty. 2. Right minimal pleural effusion versus atelectasis. 3. Increased WBC. 4. Increased MCV. 5. Parkinson disease. 6. Increased creatinine with possibly chronic kidney disease, stage III. 7. Hypertension. 8. Hyperlipidemia. 9. Degenerative joint disease. 10.Hypothyroidism. 11.History of diverticulitis. 12.History of degenerative joint disease. 13.History of bladder surgery. RECOMMENDATIONS AND DISCUSSION: I recommend to continue current medications, management and symptomatic treatment. Otherwise, I recommend urine culture and continue to monitor. Further recommendations to follow. I would also recommend a course of antibiotics also. MMODL / IJN: [id number] /
--- NOTE | 2019-02-02 08:36 | P.PN ---
Subjective Progress Note Date: 02/02/19 This is an 83-year-old male who is status post right hip hemiarthroplasty. Patient's past medical history is significant for Parkinson's disease, hyperlipidemia and hypertension. This is postoperative day #2 and patient is seen and evaluated at bedside. Patient states that his pain is well controlled. Patient denies any new symptoms or complaints. Patient denies any fever/chills, numbness, weakness, tingling, abdominal pain, shortness of breath or chest pain. Objective - Vital Signs Vital signs: Vital Signs Temp 98.4 F 02/02/19 07:22 Pulse 88 02/02/19 08:09 Resp 16 02/02/19 07:22 BP 132/73 02/02/19 07:22 Pulse Ox 94 L 02/02/19 07:22 Intake & Output 02/01/19 02/02/19 02/02/19 18:59 06:59 18:59 Intake Total 1258 280 Output Total 700 800 Balance 558 -520 Intake: IV 640 280 Sodium Chloride 0.9% 1, 640 280 000 ml @ 80 mls/hr IV . [id number] [facility] Rx#:[id number] Oral 618 Output: Urine 700 800 Uretheral (العراقي) 450 Other: Voiding Method Indwelling Catheter Urinal # Voids 2 - Exam Vital signs are stable. Patient is in no acute distress and is alert and oriented 3. Calf is soft and nontender to palpation. Dressing is clean, dry, and intact. Patient has full foot and ankle motion without pain or difficulty. Neurovascular status and circulatory status are intact. - Labs CBC & Chem 7: 01/31/19 18:49 01/31/19 07:38 Assessment and Plan (1) S/P hip hemiarthroplasty Current Visit: Yes Status: Acute Code(s): Z96.649 - PRESENCE OF UNSPECIFIED ARTIFICIAL HIP JOINT SNOMED Code(s): 168534183 (2) Fall Current Visit: Yes Status: Acute Code(s): W19.XXXA - UNSPECIFIED FALL, INITIAL ENCOUNTER SNOMED Code(s): 2771414 (3) Hip fracture Current Visit: Yes Status: Acute Code(s): S72.009A - FRACTURE OF UNSP PART OF NECK OF UNSP FEMUR, INIT SNOMED Code(s): 636739481 (4) Closed right hip fracture Current Visit: Yes Status: Acute Code(s): S72.001A - FRACTURE OF UNSP PART OF NECK OF RIGHT FEMUR, INIT SNOMED Code(s): 616585632 Plan: Continue routine postop care and pain control. Continue hip precautions with abductor pillow for 6 weeks. Continue anticoagulation with Eliquis. Weightbearing as tolerated with a walker. Leave dressing in place for 10 days. Appreciate input from medicine. Likely discharged to ECF in the next 1-2 days.
[2019-02-02 17:44] LABS: Basophils % (A) 0 %; Eosinophils # (A) 0.7 k/uL (0-0.7); Eosinophils % (A) 6 %; HCT 31.5 % (39.0-53.0); Hypochromasia Slight; Lymphocytes # (A) 0.9 k/uL (1.0-4.8); Lymphocytes % (A) 9 %; MCH 32.7 pg (25.0-35.0); MCHC 31.6 g/dL (31.0-37.0); MCV 103.6 fL (80.0-100.0); Macrocytosis Slight; Mean Platelet Volume 8.1; Monocytes # (A) 1.5 k/uL (0-1.0); Monocytes % (A) 14 %; Neutrophils # (A) 7.2 k/uL (1.3-7.7); Neutrophils % (A) 69 %; Platelet Count 154 k/uL (150-450); RBC 3.04 m/uL (4.30-5.90); RDW 13.5 % (11.5-15.5); WBC 10.6 k/uL (3.8-10.6)
[2019-02-02] MEDS: SODIUM CHLORIDE 0.9% 1,000 ML IV SCH (18:43)
--- NOTE | 2019-02-02 20:16 | PN ---
PROGRESS NOTE DATE OF SERVICE: 02/02/2019. This 83-year-old gentleman was admitted after a fall and right hip fracture, has multiple medical issues. Patient is improving significantly. The patient is on bronchodilators. No chest pain. No palpitations. No fever. EXAM: Alert and oriented x3. Pulse is 80, blood pressure 101/60, respirations 16, temperature 98.4, pulse ox 98% on room air. HEENT: Conjunctivae normal. NECK: No jugular venous distention. CARDIOVASCULAR: S1, S2. RESPIRATORY: Breath sounds diminished in the bases. A few rhonchi, no crackles. ABDOMEN: Soft. LEGS: Status post surgery. NERVOUS SYSTEM: No focal deficits. LABS: At this time, WBC 13.2, hemoglobin 11.7. UA shows evidence of UTI. ASSESSMENT: 1. Status post fall and right hip fracture, right hip hemiarthroplasty. 2. Right minimal pleural effusion, possible atelectasis. 3. Possibly urinary tract infection. 4. Increased MCV. 5. Parkinson disease. 6. Increased creatinine with possible acute chronic kidney stage III. 7. Hypertension. 8. Hyperlipidemia. 9. Degenerative joint disease. 10.Hypothyroidism. 11.History of diverticulitis. 12.History of degenerative joint disease. 13.History of bladder surgery. RECOMMENDATIONS AND DISCUSSION: I recommend to continue current medications, continue to monitor and symptomatic treatment. Incentive spirometry, otherwise bronchodilators. Closely follow with empiric antibiotics. Otherwise, closely follow with Orthopedic surgery. Otherwise, the patient will require ECF rehab because of multiple complex medical issues as listed above. Further recommendations to follow. I will recommend to follow with Dr. Morales after discharge. The rest of the recommendations per Orthopedic Surgery. Further recommendations to follow. MMODL / IJN: [id number] /
[2019-02-02] MEDS: SENNOSIDES-DOCUSATE SODIUM 1 EACH TAB PO SCH (20:28)
[2019-02-03] MEDS: LEVOTHYROXINE 125 MCG TAB PO SCH (05:25)
[2019-02-03 06:57] VITALS: BP 117/68; RESP 16; TEMP 98.3
[2019-02-03] MEDS: IPRATROPIUM-ALBUTEROL 3 ML NEB INHALATION SCH (07:35)
[2019-02-03 07:46] VITALS: PULSE 88
--- NOTE | 2019-02-03 08:03 | P.DS ---
Providers Date of admission: 01/30/19 21:03 Expected date of discharge: 02/03/19 Attending physician: Robinson Schneider Consults: 01/30/19 21:02 Consult Physician Routine Consulting Provider: Anjel Tan Consult Reason/Comments: medical management Do you want consulting provider notified?: Yes Primary care physician: Keaton Diamond Andrew - Discharge Diagnosis(es) (1) S/P hip hemiarthroplasty Current Visit: Yes Status: Acute (2) Fall Current Visit: Yes Status: Acute (3) Hip fracture Current Visit: Yes Status: Acute (4) Closed right hip fracture Current Visit: Yes Status: Acute Hospital Course: This is a 83-year-old male who sustained a right hip fracture after a fall. The patient presented to the emergency room and x-rays showed a right subcapital femoral neck fracture. After discussion and consideration patient elects to proceed with right hip hemiarthroplasty. The patient is seen preoperatively by Dr. Schneider and medically cleared for surgery by internal medicine. Patient is admitted to [facility] on 01/30/2019 and right hip hemiarthroplasty is performed on 01/31/2019. The procedure is performed without complication or sequelae. The patient is doing well postoperatively. Labs and vital signs are stable on day of discharge. On day of discharge patient's hip incision is healing well. There is minimal erythema. There is no drainage noted at this time. There is minimal soft tissue swelling to the hip and thigh. Patient has full foot and ankle motion without difficulty or pain. Calf is soft and nontender to palpation. Opioid start talking consent form is reviewed at bedside, but patient states that he is physically unable to sign it due to tremors from Parkinson's disease. Neurovascular status to the right lower extremity is intact. Patient is discharged to rehab in good condition. Please see med rec for accurate list of home medications. Patient Condition at Discharge: Fair Plan - Discharge Summary New Discharge Prescriptions: New HYDROcodone/APAP 5-325MG [[place] 5-325] 1 - 2 tab PO Q6HR PRN #56 tab PRN Reason: Pain Sennosides [Senokot] 1 tab PO BID #60 tablet Rivaroxaban [Xarelto] 10 mg PO DAILY #33 tab No Action Levothyroxine Sodium [Synthroid] 125 mcg PO DAILY Lisinopril 40 mg PO DAILY Lovastatin [Mevacor] 40 mg PO DAILY Aspirin 81 mg PO DAILY traMADol HCL [Ultram] 50 mg PO Q6HR PRN PRN Reason: Pain rOPINIRole HCL [Requip] 0.25 mg PO HS Methocarbamol [Robaxin] 500 mg PO TID PRN PRN Reason: Pain Cholecalciferol [Vitamin D3] 400 unit PO DAILY Carbidopa-Levodopa 25-100 mg [Sinemet 25-100] 1 tab PO TID Amantadine HCl [Symmetrel] 100 mg PO BID Discharge Medication List Aspirin 81 mg PO DAILY 12/11/13 [History] Levothyroxine Sodium [Synthroid] 125 mcg PO DAILY 12/11/13 [History] Lisinopril 40 mg PO DAILY 12/11/13 [History] Lovastatin [Mevacor] 40 mg PO DAILY 12/11/13 [History] traMADol HCL [Ultram] 50 mg PO Q6HR PRN 05/11/18 [History] Amantadine HCl [Symmetrel] 100 mg PO BID 01/30/19 [History] Carbidopa-Levodopa 25-100 mg [Sinemet 25-100] 1 tab PO TID 01/30/19 [History] Cholecalciferol [Vitamin D3] 400 unit PO DAILY 01/30/19 [History] Methocarbamol [Robaxin] 500 mg PO TID PRN 01/30/19 [History] rOPINIRole HCL [Requip] 0.25 mg PO HS 01/30/19 [History] HYDROcodone/APAP 5-325MG [[place] 5-325] 1 - 2 tab PO Q6HR PRN #56 tab 02/02/19 [Rx] Rivaroxaban [Xarelto] 10 mg PO DAILY #33 tab 02/02/19 [Rx] Sennosides [Senokot] 1 tab PO BID #60 tablet 02/02/19 [Rx] Follow up Appointment(s)/Referral(s): Keaton Morales MD [Primary Care Provider] - 1-2 days Robinson Schneider MD [Medical Doctor] - 2 Weeks Activity/Diet/Wound Care/Special Instructions: [facility] on discharge Weightbearing as tolerated with walker. Leave dressing intact. Dressing may be removed by home care nurse or by patient in 10 days. May shower with dressing on. Continue use of abductor pillow. Please follow[facility]up with [facility] in 2 weeks and call with any questions or concerns, . Discharge Disposition: TRANSFER TO SNF/ECF
[2019-02-03] MEDS: AMANTADINE HCL 100 MG CAP PO SCH (08:46)
[2019-02-03] MEDS: RIVAROXABAN 10 MG TAB PO SCH (08:46)
[2019-02-03] MEDS: LISINOPRIL 20 MG TAB PO SCH (08:46)
[2019-02-03] MEDS: CARBIDOPA-LEVODOPA 25-100 MG 1 EACH TAB PO SCH (08:46)
[2019-02-03] MEDS: ATORVASTATIN 10 MG TAB PO SCH (08:46)
[2019-02-03] MEDS: CHOLECALCIFEROL 400 UNIT TAB PO SCH (08:46)
--- NOTE | 2019-02-03 21:59 | PN ---
PROGRESS NOTE DATE OF SERVICE: 02/03/2019 This 83-year-old gentleman admitted with a fall and knee fracture had multiple medical issues, also. Patient is being closely monitored. Currently the patient is being scheduled to go home at this time. No chest pain. No palpitations. No fever. On exam, alert and oriented x3. Pulse 76, blood pressure 117/68, respirations 16, temperature 98.3, pulse ox 94% on room air. HEENT: Conjunctivae normal. NECK: No jugular venous distention. CARDIOVASCULAR SYSTEM: S1, S2 muffled. RESPIRATORY SYSTEM: Breath sounds diminished at the bases. No rhonchi. No crackles. ABDOMEN: Soft. LEGS: Status post surgery. NERVOUS SYSTEM: No focal deficit. LABS: WBC 10.6, hemoglobin 10. Other labs are noted. UA noted. ASSESSMENT: 1. Status post fall and right hip fracture, right hip hemiarthroplasty. 2. Right minimal pleural effusion, possible atelectasis, improved. 3. Possible urinary tract infection, improved. 4. Increased mean corpuscular volume. 5. Parkinson's disease. 6. Increased creatinine with possible chronic kidney disease, stage III. 7. Hypertension. 8. Hyperlipidemia. 9. Degenerative joint disease. 10.Hypothyroidism. 11.History of diverticulitis. 12.History of degenerative joint disease. 13.History of bladder surgery. RECOMMENDATIONS AND DISCUSSION: I recommend to continue current medications, continue with the monitoring, symptomatic treatment. I recommend follow-up labs in the outpatient setting. The rest of the recommendations per Orthopedic Surgery. Further recommendations to follow. MMODL / IJN: [id number] /
--- NOTE | 2019-02-06 03:40 | CDI ---
Documentation Clarification Form Date: 02/06/19 From: Santana Cordova Phone: call to [phone] Admit Date: 01/30/2019 9:03:00 PM Patient Name: Laurel Velez Visit Number: [id number] Discharge Date: 02/03/2019 1:15:00 PM ATTENTION: The Clinical Documentation Specialists (CDI) and [facility] Coding Staff appreciate your assistance in clarifying documentation. Please respond to the clarification below the line at the bottom and electronically sign. The CDI & [facility] Coding staff will review the response and follow-up if needed. Please note: Queries are made part of the Legal Health Record. If you have any questions, please contact the author of this message via ITS. Dr. Robinson Schneider Possible UTI was documented in the Progress note 02/02 and 02/03 Possibly Urinary tract infection,improved documented by rosalba Bird. Clinical Indicators: Vital Signs: Pulse 87 and 88 WBC: 13.8 and 13.2 Urine Culture: Not obtained. Treatment: given Cefazolin on 01/31 and 02/01 In your professional opinion can you please clarify UTI presence, UTI(Ruled in or Ruled out) Other, please specify Unable to determine Present on Admission: Yes No I didn't diagnose, manage or document anything about a UTI during this patient's admission. I would confirm the diagnosis with Dr. Tan. DAVID MORAN
== END 2019-02-03 13:15 | DRG 470 ==
LOC: EC 17:23 → 4SSUR 21:03
PROVIDERS: ADMIT Orthopaedic Surgery; ATTEND Orthopaedic Surgery
PROC: 0SRR0J9 Replacement of Right Hip Joint, Femoral Surface with Synthetic Substitute, Cemented, Open Approach (ICD-10-PCS; principal; 2019-01-31 15:00)
DX: S72.011A Unspecified intracapsular fracture of right femur, initial encounter for closed fracture (principal); N39.0 Urinary tract infection, site not specified; I10 Essential (primary) hypertension; G20 Parkinson's disease; S50.311A Abrasion of right elbow, initial encounter; I12.9 Hypertensive chronic kidney disease with stage 1 through stage 4 chronic kidney disease, or unspecified chronic kidney disease; N18.3 Chronic kidney disease, stage 3 (moderate); E03.9 Hypothyroidism, unspecified; E78.5 Hyperlipidemia, unspecified; I35.0 Nonrheumatic aortic (valve) stenosis; M19.90 Unspecified osteoarthritis, unspecified site; W18.30XA Fall on same level, unspecified, initial encounter; Z96.1 Presence of intraocular lens; Z79.82 Long term (current) use of aspirin; Z79.890 Hormone replacement therapy; Z79.899 Other long term (current) drug therapy; Z82.49 Family history of ischemic heart disease and other diseases of the circulatory system; Z82.5 Family history of asthma and other chronic lower respiratory diseases; Z85.51 Personal history of malignant neoplasm of bladder; Z98.41 Cataract extraction status, right eye; Z98.42 Cataract extraction status, left eye; Z87.19 Personal history of other diseases of the digestive system
CPT/HCPCS: 36415; 70450; 71045; 71046; 72082; 72125; 73501; 73502; 80048; 81001; 82306; 83880; 85025; 85610; 87040; 87086; 88305; 88311; 90471; 90715; 93005; 93306; 94640; 94760; 96374; 96375; 99285

== ENCOUNTER 2019-03-23 21:00 | Inpatient (IN) | payer MEDICARE ==
[2019-03-23] MEDS ORDERED: SODIUM CHLORIDE 0.9% 500 ML 500 ML IV ONE (21:18)
--- NOTE | 2019-03-23 21:43 | ED ---
General Adult HPI - General Chief complaint: Altered Mental Status Stated complaint: Confusion Time Seen by Provider: 03/23/19 21:18 Source: patient, EMS Mode of arrival: EMS Limitations: no limitations - History of Present Illness Initial comments: Laurel is a pleasant 84-year-old gentleman who presents the emergency department today from an assisted living for evaluation of possible altered mental status. Per EMS they were told that today around lunchtime the patient was found wandering around the hallway and seemed to be confused. However they were contacted until after dinner time at which time the patient seemed to be awake alert and pleasant. Patient reports that yesterday during the day he wasn't feeling well, he refused to eat his lunch because he felt like he might throw up however he is feeling better today and he ate breakfast and lunch. He states that he was sitting at the dinner table when EMS arrived with the gurney and told him he was coming to the hospital. Patient denies any specific complaints and doesn't clearly understand why he is here. Patient does have a history of Parkinson's. - Related Data Home Medications Medication Instructions Recorded Confirmed Aspirin 81 mg PO DAILY 12/11/13 03/23/19 Levothyroxine Sodium [Synthroid] 125 mcg PO HS 12/11/13 03/23/19 Lisinopril 40 mg PO DAILY 12/11/13 03/23/19 Lovastatin [Mevacor] 40 mg PO DAILY 12/11/13 03/23/19 Amantadine HCl [Symmetrel] 100 mg PO BID 01/30/19 03/23/19 Carbidopa-Levodopa 25-100 mg 1 tab PO TID 01/30/19 03/23/19 [Sinemet 25-100] rOPINIRole HCL [Requip] 0.25 mg PO HS 01/30/19 03/23/19 Acetaminophen Tab [Tylenol Tab] 650 mg PO Q6H PRN 03/23/19 03/23/19 Apixaban [Eliquis] 2.5 mg PO BID 03/23/19 03/23/19 Cholecalciferol [Vitamin D3 (25 1,000 unit PO DAILY 03/23/19 03/23/19 Mcg = 1000 Iu)] Sennosides [Senokot] 17.2 mg PO BID 03/23/19 03/23/19 Allergies Allergy/AdvReac Type Severity Reaction Status Date / Time No Known Allergies Allergy Verified 03/23/19 21:34 Review of Systems ROS Statement: Those systems with pertinent positive or pertinent negative responses have been documented in the HPI. ROS Other: All systems not noted in ROS Statement are negative. Past Medical History Past Medical History: Cancer, Hyperlipidemia, Hypertension, Osteoarthritis (OA), Thyroid Disorder Additional Past Medical History / Comment(s): BLADDER CANCER SURGERY 2012, HYPOTHYROID, MURMUR YRS AGO, DIVERTICULAR DX, HEMORRHOIDS, ARTHRITIS ESPECIALLY IN HANDS, R HAND TREMOR, back surgery, parkinsons History of Any Multi-Drug Resistant Organisms: None Reported Past Surgical History: Bladder Surgery Additional Past Surgical History / Comment(s): CYSTOCOPY WITH BLADDER TUMOR REMOVED, COLONOSCOPY, BILATERAL CATARACT REMOVAL WITH LENS IMPLANTS. Past Anesthesia/Blood Transfusion Reactions: No Reported Reaction Past Psychological History: No Psychological Hx Reported Smoking Status: Never smoker Past Alcohol Use History: None Reported Past Drug Use History: None Reported - Past Family History Father Family Medical History: Myocardial Infarction (ND) Additional Family Medical History / Comment(s): FATHER HAD ND'S PRIOR TO AGE 60YRS. HE AT 62 FROM "HEART PROBLEMS." Mother Family Medical History: COPD Additional Family Medical History / Comment(s): MOTHER LIVED INTO HER 90'S. General Exam - General Exam Comments Initial Comments: Physical Exam GENERAL: Patient is well-developed and well-nourished. Patient is nontoxic and well-hydrated and is in no distress. Resting tremor HENT: Normocephalic, Atraumatic. EYES: PERRL, EOMI PULMONARY: Unlabored respirations. No audible rales rhonchi or wheezing was noted. CARDIOVASCULAR: There is a regular rate and rhythm without any murmurs gallops or rubs. ABDOMEN: Soft and nontender with normal bowel sounds. SKIN: Skin is clear with no lesions or rashes and otherwise unremarkable. : Deferred NEUROLOGIC: Alert and oriented to person, able to identify that he is in hospitals are not certain of which, able to name the president, seems to be aware of the events of the day. MUSCULOSKELETAL: Normal extremities with adequate strength and full range of motion. No lower extremity swelling or edema. No calf tenderness. PSYCHIATRIC: Pleasant though confused about why he is at the emergency department Limitations: no limitations Course Vital Signs 03/23/19 03/24/19 21:05 00:07 Temperature 98.7 F 98.4 F Pulse Rate 87 86 Respiratory 17 18 Rate Blood Pressure 137/81 136/73 O2 Sat by Pulse 96 98 Oximetry Medical Decision Making - Medical Decision Making She was seen and evaluated, history is obtained from the patient and EMS X in this pleasant 84-year-old gentleman with Parkinson's and history of bladder cancer presenting with some confusion today Labs were ordered Labs resulted with mild leukocytosis, mild anemia and evidence of a urinary tract infection, review of previous urine cultures revealed no pathology therefore Rocephin was ordered. Given patient's advanced age and confusion decision was made to place the patient in the hospital for further evaluation. Patient care was discussed with Dr. sosa of the [facility] hospitalist group who agrees with plan for admission. - Lab Data Result diagrams: 03/23/19 21:52 03/23/19 21:52 Lab Results 03/23/19 03/23/19 03/23/19 Range/Units 21:52 21:52 21:52 WBC 11.1 H (3.8-10.6) k/uL RBC 3.44 L (4.30-5.90) m/uL Hgb 11.1 L (13.0-17.5) gm/dL Hct 34.8 L (39.0-53.0) % MCV 101.3 H (80.0-100.0) fL MCH 32.2 (25.0-35.0) pg MCHC 31.8 (31.0-37.0) g/dL RDW 13.3 (11.5-15.5) % Plt Count 372 D (150-450) k/uL Neutrophils % 63 % Lymphocytes % 9 % Monocytes % 14 % Eosinophils % 13 % Basophils % 0 % Neutrophils # 7.0 (1.3-7.7) k/uL Lymphocytes # 1.0 (1.0-4.8) k/uL Monocytes # 1.5 H (0-1.0) k/uL Eosinophils # 1.4 H (0-0.7) k/uL Basophils # 0.0 (0-0.2) k/uL Macrocytosis Slight PT 11.0 (9.0-12.0) sec INR 1.0 (<1.2) APTT 21.4 L (22.0-30.0) sec Sodium 141 (137-145) mmol/L Potassium 4.1 (3.5-5.1) mmol/L Chloride 106 (98-107) mmol/L Carbon Dioxide 26 (22-30) mmol/L Anion Gap 9 mmol/L BUN 32 H (9-20) mg/dL Creatinine 1.43 H (0.66-1.25) mg/dL Est GFR (CKD-EPI)AfAm 52 (>60 ml/min/1.73 sqM) Est GFR (CKD-EPI)NonAf 45 (>60 ml/min/1.73 sqM) Glucose 106 H (74-99) mg/dL POC Glucose (mg/dL) (75-99) mg/dL POC Glu Jumpbasting Facing Baster ID Calcium 10.0 (8.4-10.2) mg/dL Total Bilirubin 0.6 (0.2-1.3) mg/dL AST 19 (17-59) U/L ALT 11 L (21-72) U/L Alkaline Phosphatase 85 (38-126) U/L Troponin I (0.000-0.034) ng/mL Total Protein 7.1 (6.3-8.2) g/dL Albumin 3.6 (3.5-5.0) g/dL Urine Color Urine Appearance (Clear) Urine pH (5.0-8.0) Ur Specific [place] (1.001-1.035) Urine Protein (Negative) Urine Glucose (UA) (Negative) Urine Ketones (Negative) Urine Blood (Negative) Urine Nitrite (Negative) Urine Bilirubin (Negative) Urine Urobilinogen (<2.0) mg/dL Ur Leukocyte Esterase (Negative) Urine RBC (0-5) /hpf Urine WBC (0-5) /hpf Ur Squamous Epith Cells (0-4) /hpf Urine Mucus (None) /hpf Urine Opiates Screen (NotDetected) Ur Oxycodone Screen (NotDetected) Urine Methadone Screen (NotDetected) Ur Propoxyphene Screen (NotDetected) Ur Barbiturates Screen (NotDetected) U Tricyclic Antidepress (NotDetected) Ur Phencyclidine Scrn (NotDetected) Ur Amphetamines Screen (NotDetected) U Methamphetamines Scrn (NotDetected) U Benzodiazepines Scrn (NotDetected) Urine Cocaine Screen (NotDetected) U Marijuana (THC) Screen (NotDetected) 03/23/19 03/23/19 03/23/19 Range/Units 21:52 22:03 22:17 WBC (3.8-10.6) k/uL RBC (4.30-5.90) m/uL Hgb (13.0-17.5) gm/dL Hct (39.0-53.0) % MCV (80.0-100.0) fL MCH (25.0-35.0) pg MCHC (31.0-37.0) g/dL RDW (11.5-15.5) % Plt Count (150-450) k/uL Neutrophils % % Lymphocytes % % Monocytes % % Eosinophils % % Basophils % % Neutrophils # (1.3-7.7) k/uL Lymphocytes # (1.0-4.8) k/uL Monocytes # (0-1.0) k/uL Eosinophils # (0-0.7) k/uL Basophils # (0-0.2) k/uL Macrocytosis PT (9.0-12.0) sec INR (<1.2) APTT (22.0-30.0) sec Sodium (137-145) mmol/L Potassium (3.5-5.1) mmol/L Chloride (98-107) mmol/L Carbon Dioxide (22-30) mmol/L Anion Gap mmol/L BUN (9-20) mg/dL Creatinine (0.66-1.25) mg/dL Est GFR (CKD-EPI)AfAm (>60 ml/min/1.73 sqM) Est GFR (CKD-EPI)NonAf (>60 ml/min/1.73 sqM) Glucose (74-99) mg/dL POC Glucose (mg/dL) 98 (75-99) mg/dL POC Glu Jumpbasting Facing Baster ID Celestine, Gladys Calcium (8.4-10.2) mg/dL Total Bilirubin (0.2-1.3) mg/dL AST (17-59) U/L ALT (21-72) U/L Alkaline Phosphatase (38-126) U/L Troponin I 0.024 (0.000-0.034) ng/mL Total Protein (6.3-8.2) g/dL Albumin (3.5-5.0) g/dL Urine Color Yellow Urine Appearance Clear (Clear) Urine pH 5.0 (5.0-8.0) Ur Specific [place] 1.026 (1.001-1.035) Urine Protein Trace H (Negative) Urine Glucose (UA) Negative (Negative) Urine Ketones 1+ H (Negative) Urine Blood Negative (Negative) Urine Nitrite Negative (Negative) Urine Bilirubin Negative (Negative) Urine Urobilinogen 2.0 (<2.0) mg/dL Ur Leukocyte Esterase Large H (Negative) Urine RBC 2 (0-5) /hpf Urine WBC 25 H (0-5) /hpf Ur Squamous Epith Cells 1 (0-4) /hpf Urine Mucus Occasional H (None) /hpf Urine Opiates Screen Not Detected (NotDetected) Ur Oxycodone Screen Not Detected (NotDetected) Urine Methadone Screen Not Detected (NotDetected) Ur Propoxyphene Screen Not Detected (NotDetected) Ur Barbiturates Screen Not Detected (NotDetected) U Tricyclic Antidepress Not Detected (NotDetected) Ur Phencyclidine Scrn Not Detected (NotDetected) Ur Amphetamines Screen Not Detected (NotDetected) U Methamphetamines Scrn Not Detected (NotDetected) U Benzodiazepines Scrn Not Detected (NotDetected) Urine Cocaine Screen Not Detected (NotDetected) U Marijuana (THC) Screen Not Detected (NotDetected) Disposition Clinical Impression: UTI (urinary tract infection), Altered mental status Disposition: ADMITTED IP TO THIS HOSP Condition: Stable
[2019-03-23 22:05] LABS: Glucose,Whole Blood 98 mg/dL (75-99)
[2019-03-23 22:09] LABS: Basophils % (A) 0 %; Eosinophils # (A) 1.4 k/uL (0-0.7); Eosinophils % (A) 13 %; HCT 34.8 % (39.0-53.0); HGB 11.1 gm/dL (13.0-17.5); Lymphocytes % (A) 9 %; MCH 32.2 pg (25.0-35.0); MCHC 31.8 g/dL (31.0-37.0); MCV 101.3 fL (80.0-100.0); Macrocytosis Slight; Mean Platelet Volume 7.2; Monocytes # (A) 1.5 k/uL (0-1.0); Monocytes % (A) 14 %; Neutrophils % (A) 63 %; RBC 3.44 m/uL (4.30-5.90); RDW 13.3 % (11.5-15.5); WBC 11.1 k/uL (3.8-10.6)
[2019-03-23 22:18] LABS: Albumin 3.6 g/dL (3.5-5.0); Potassium 4.1 mmol/L (3.5-5.1); Total Bilirubin 0.6 mg/dL (0.2-1.3); Total Protein 7.1 g/dL (6.3-8.2)
[2019-03-23 22:25] LABS: Platelet Count 372 k/uL (150-450)
[2019-03-23 22:40] LABS: Appearance,Urine Clear (Clear); Bilirubin,Urine Negative (Negative); Blood,Urine Negative (Negative); Color,Urine Yellow; Glucose,Urine (UA) Negative (Negative); Ketones,Urine 1+ (Negative); Leukocyte Esterase,Urine Large (Negative); Mucus,Urine Occasional /hpf; Nitrite,Urine Negative (Negative); Protein,Urine Trace (Negative); RBC,Urine 2 /hpf (0-5); Specific Gravity,Urine 1.026 (1.001-1.035); Squamous Epithelial Cell,Urine 1 /hpf (0-4); WBC,Urine 25 /hpf (0-5)
[2019-03-23 22:43] LABS: Partial Thromboplastin Time 21.4 sec (22.0-30.0)
[2019-03-23 22:48] LABS: Amphetamine Screen,Urine Not Detected (NotDetected); Barbiturate Screen,Urine Not Detected (NotDetected); Benzodiazepines Screen,Urine Not Detected (NotDetected); Cocaine Screen,Urine Not Detected (NotDetected); Methadone Screen, Urine Not Detected (NotDetected); Opiate Screen,Urine Not Detected (NotDetected); Oxycodone Screen, Urine Not Detected (NotDetected); Phencyclidine Screen,Urine Not Detected (NotDetected); Tricyclic Antidepressant,Urine Not Detected (NotDetected); Urn Cannabinoid Scrn Not Detected (NotDetected)
--- NOTE | 2019-03-23 23:12 | XR ---
EXAM: XR Chest, 2 Views CLINICAL HISTORY: ITS.REASON XR Reason: altered mental status TECHNIQUE: Frontal and lateral views of the chest. COMPARISON: 02/01/19. FINDINGS: Lungs/pleural space: Once again, there is a small right pleural effusion. Associated basilar atelectasis and/or infiltrate. Heart: Mild cardiomegaly. Mediastinum: Unremarkable. Bones/joints: Degenerative changes. IMPRESSION: Stable small right pleural effusion with associated basilar atelectasis and/or infiltrate. Mild cardiomegaly
[2019-03-23] MEDS ORDERED: cefTRIAXone IN SWFI 1,000 MG/10 ML SYRINGE IVP STA (23:28)
[2019-03-24] MEDS ORDERED: NALOXONE 0.4 MG/ML 1 ML VIAL IV PRN (00:15)
[2019-03-24] MEDS: APIXABAN 2.5 MG TABLET PO SCH ×2 (11:25→21:17)
[2019-03-24] MEDS: CARBIDOPA-LEVODOPA 25-100 MG 1 EACH TAB PO SCH ×3 (11:25→22:28)
[2019-03-24] MEDS: ASPIRIN 81 MG PO SCH (11:25)
[2019-03-24] MEDS: CHOLECALCIFEROL 1,000 UNIT TAB PO SCH (11:25)
[2019-03-24] MEDS: AMANTADINE HCL 100 MG CAP PO SCH ×2 (11:25→21:17)
[2019-03-24 13:28] VITALS: BMI 25.1
--- NOTE | 2019-03-24 17:04 | P.HPIM ---
History of Present Illness H&P Date: 03/24/19 Chief Complaint: Altered mental status Patient is a 84-year-old male with a known history of hypertension, osteoarthritis, hypothyroidism and Parkinson's disease, dementia was sent from assisted living facility for evaluation of altered mental status.Per EMS they were told that today around lunchtime the patient was found wandering around the hallway and seemed to be confused. Patient reports that yesterday during the day he was not feeling well and refused to eat his lunch because he felt like he might throw up. Patient was brought to the hospital by EMS. Currently patient is awake alert oriented 3 and able to communicate slowly. Patient does not know the specific reason why is he is now in the hospital. Denied any fever or chills. Currently denied any nausea vomiting or abdominal pain. Denied any dysuria or hematuria. Denied any recent illnesses. No headache or dizziness or lightheadedness. WBC 11.1, BUN 32 and creatinine level I.43, Urinalysis showed cloudy with large leukocyte esterase and WBCs 25 EKG showed normal sinus rhythm with first-degree AV block Rest x-ray showed stable small right pleural effusion with associated basilar atelectasis and/or infiltrate. Review of Systems Constitutional: Patient denies any fever or chills . No generalized weakness or weight loss. Abdomen: Patient denied nausea vomiting and diarrhea and abdominal pain. Cardiovascular: Patient denies any chest pain or short of breath no palpitations. Respiratory: patient denied any cough is from production. No shortness of breath Neurologic: Patient denied any numbness or tingling headache. Musculoskeletal: Patient denies any complaints of joint swelling or deformity. Skin: Negative Psychiatric: Negative Endocrine: No heat or cold intolerance. No recent weight gain. Genitourinary: No dysuria or hematuria. All other 14 point ROS negative except the above Past Medical History Past Medical History: Cancer, Hyperlipidemia, Hypertension, Osteoarthritis (OA), Thyroid Disorder Additional Past Medical History / Comment(s): BLADDER CANCER SURGERY 2011, HYPOTHYROID, MURMUR YRS AGO, DIVERTICULAR DX, HEMORRHOIDS, ARTHRITIS ESPECIALLY IN HANDS, R HAND TREMOR, back surgery, parkinsons, right head and neck femur fracture ,aortic valve stenosis History of Any Multi-Drug Resistant Organisms: None Reported Past Surgical History: Bladder Surgery, Orthopedic Surgery Additional Past Surgical History / Comment(s): CYSTOCOPY WITH BLADDER TUMOR REMOVED, COLONOSCOPY, BILATERAL CATARACT REMOVAL WITH LENS IMPLANTS. right hip hemiarthoplasty 02/03/19, back surgery Past Anesthesia/Blood Transfusion Reactions: No Reported Reaction Past Psychological History: No Psychological Hx Reported Additional Psychological History / Comment(s): [facility] Smoking Status: Never smoker Past Alcohol Use History: None Reported Past Drug Use History: None Reported - Past Family History Father Family Medical History: Myocardial Infarction ([place]) Additional Family Medical History / Comment(s): FATHER HAD OH'S PRIOR TO AGE 60YRS. HE AT 62 FROM "HEART PROBLEMS." Mother Family Medical History: COPD Additional Family Medical History / Comment(s): MOTHER LIVED INTO HER 90'S. Medications and Allergies Home Medications Medication Instructions Recorded Confirmed Type Aspirin 81 mg PO DAILY 12/11/13 03/24/19 History Levothyroxine Sodium [Synthroid] 125 mcg PO HS 12/11/13 03/24/19 History Lisinopril 40 mg PO DAILY 12/11/13 03/24/19 History Lovastatin [Mevacor] 40 mg PO DAILY 12/11/13 03/24/19 History Amantadine HCl [Symmetrel] 100 mg PO BID 01/30/19 03/24/19 History Carbidopa-Levodopa 25-100 mg 1 tab PO TID 01/30/19 03/24/19 History [Sinemet 25-100] rOPINIRole HCL [Requip] 0.25 mg PO HS 01/30/19 03/24/19 History Acetaminophen Tab [Tylenol Tab] 650 mg PO Q6H PRN 03/23/19 03/24/19 History Apixaban [Eliquis] 2.5 mg PO BID 03/23/19 03/24/19 History Cholecalciferol [Vitamin D3 (25 1,000 unit PO DAILY 03/23/19 03/24/19 History Mcg = 1000 Iu)] Sennosides [Senokot] 17.2 mg PO BID 03/23/19 03/24/19 History Allergies Allergy/AdvReac Type Severity Reaction Status Date / Time No Known Allergies Allergy Verified 03/24/19 01:26 Physical Exam Vitals: Vital Signs Temp Pulse Pulse Resp BP BP Pulse Ox 03/24/19 04:57 99.1 F 81 18 125/59 94 L 03/24/19 02:22 98.7 F 83 16 135/75 95 03/24/19 00:07 98.4 F 86 18 136/73 98 03/23/19 21:05 98.7 F 87 17 137/81 96 Intake and Output 03/23/19 03/24/19 03/24/19 22:59 06:59 14:59 Other: Voiding Method Urinal Diaper # Voids 1 1 Weight 79.379 kg PHYSICAL EXAMINATION: Patient is lying in the bed comfortably, no acute distress, awake alert and oriented.. HEENT: Normocephalic. Neck is supple. Pupils reactive. Nostrils clear. Oral cavity is moist. Ears reveal no drainage. Neck reveals no JVD, carotid bruits, or thyromegaly. CHEST EXAMINATION: Trachea is central. Symmetrical expansion. Lung forbes clear to auscultation and percussion. CARDIAC: Normal S1, S2 with no gallops. Systolic murmur present ABDOMEN: Soft. Bowel sounds normal. No organomegaly. No abdominal bruits. Extremities: reveal no edema. No clubbing or cyanosis Neurologically awake, alert, oriented x3 with well-coordinated movements. Underlying dementia. No focal deficits noted Skin: No rash or skin lesions. Psychiatric: Coperative. Nonsuicidal Musculoskeletal: No joint swelling or deformity. Normal range of motion. Results CBC & Chem 7: 03/23/19 21:52 03/23/19 21:52 Labs: Abnormal Lab Results - Last 24 Hours (Table) 03/23/19 03/23/19 03/23/19 Range/Units 21:52 21:52 21:52 WBC 11.1 H (3.8-10.6) k/uL RBC 3.44 L (4.30-5.90) m/uL Hgb 11.1 L (13.0-17.5) gm/dL Hct 34.8 L (39.0-53.0) % MCV 101.3 H (80.0-100.0) fL Monocytes # 1.5 H (0-1.0) k/uL Eosinophils # 1.4 H (0-0.7) k/uL APTT 21.4 L (22.0-30.0) sec BUN 32 H (9-20) mg/dL Creatinine 1.43 H (0.66-1.25) mg/dL Glucose 106 H (74-99) mg/dL ALT 11 L (21-72) U/L Urine Protein (Negative) Urine Ketones (Negative) Ur Leukocyte Esterase (Negative) Urine WBC (0-5) /hpf Urine Mucus (None) /hpf 03/23/19 Range/Units 22:17 WBC (3.8-10.6) k/uL RBC (4.30-5.90) m/uL Hgb (13.0-17.5) gm/dL Hct (39.0-53.0) % MCV (80.0-100.0) fL Monocytes # (0-1.0) k/uL Eosinophils # (0-0.7) k/uL APTT (22.0-30.0) sec BUN (9-20) mg/dL Creatinine (0.66-1.25) mg/dL Glucose (74-99) mg/dL ALT (21-72) U/L Urine Protein Trace H (Negative) Urine Ketones 1+ H (Negative) Ur Leukocyte Esterase Large H (Negative) Urine WBC 25 H (0-5) /hpf Urine Mucus Occasional H (None) /hpf Thrombosis Risk Factor Assmnt - DVT/VTE Prophylaxis DVT/VTE Prophylaxis: Pharmacologic Prophylaxis ordered - Choose All That Apply Any of the Below Risk Factors Present?: Yes Each Factor Represents 1 point: Medical pt on bed rest, Obesity (BMI >25), Swollen legs (current) Other Risk Factors: Yes Each Risk Factor Represents 2 Points: Patient confined to bed Each Risk Factor Represents 3 Points: Age 75 years or older Other congenital or acquired thrombophilia - If yes, enter type in comment: No Thrombosis Risk Factor Assessment Total Risk Factor Score: 8 Thrombosis Risk Factor Assessment Level: High Risk Assessment and Plan Assessment: Acute urinary tract infection. Follow-up culture reports Altered mental status possible encephalopathy secondary infection. Resolving n ow Hypertension Hyperlipidemia Osteoarthritis Hypothyroidism Bladder cancer status post surgery in 2012 History of diverticulosis Hand tremors Parkinson's disease aortic valve stenosis DVT prophylaxis with heparin subcu Plan: Patient will be continued on antibiotics the form of ceftriaxone. Follow-up urine culture report. Gentle hydration. Encourage ambulation and incentive spirometry and follow up closely. Continue the home medications and further recommendations based on the clinical course. Prognosis is guarded with multiple medical problems and comorbid conditions. Time with Patient: Greater than 30
[2019-03-24] MEDS: LEVOTHYROXINE 125 MCG TAB PO SCH (21:17)
[2019-03-24] MEDS: SENNOSIDES 8.6 MG TAB PO SCH (21:18)
[2019-03-25] MEDS: ATORVASTATIN 10 MG TAB PO SCH (07:35)
[2019-03-25] MEDS: ASPIRIN 81 MG PO SCH (07:35)
[2019-03-25] MEDS: AMANTADINE HCL 100 MG CAP PO SCH ×2 (07:35→21:10)
[2019-03-25] MEDS: SENNOSIDES 8.6 MG TAB PO SCH ×2 (07:35→21:11)
[2019-03-25] MEDS: CHOLECALCIFEROL 1,000 UNIT TAB PO SCH (07:35)
[2019-03-25] MEDS: CARBIDOPA-LEVODOPA 25-100 MG 1 EACH TAB PO SCH ×3 (07:35→22:28)
[2019-03-25] MEDS: LISINOPRIL 20 MG TAB PO SCH (07:36)
[2019-03-25] MEDS: APIXABAN 2.5 MG TABLET PO SCH ×2 (07:36→21:10)
[2019-03-25] MEDS: ACETAMINOPHEN TAB 325 MG TAB PO PRN (12:34)
[2019-03-25 16:53] LABS: Basophils % (A) 0 %; Eosinophils # (A) 1.9 k/uL (0-0.7); Eosinophils % (A) 20 %; Hypochromasia Slight; Lymphocytes # (A) 1.3 k/uL (1.0-4.8); Lymphocytes % (A) 14 %; MCH 31.6 pg (25.0-35.0); MCHC 31.4 g/dL (31.0-37.0); MCV 100.8 fL (80.0-100.0); Mean Platelet Volume 7.6; Monocytes # (A) 1.3 k/uL (0-1.0); Monocytes % (A) 14 %; Neutrophils # (A) 4.9 k/uL (1.3-7.7); Neutrophils % (A) 51 %; Platelet Count 297 k/uL (150-450); RBC 3.17 m/uL (4.30-5.90); WBC 9.6 k/uL (3.8-10.6)
[2019-03-25 17:11] LABS: Potassium 4.2 mmol/L (3.5-5.1)
[2019-03-25] MEDS: LEVOTHYROXINE 125 MCG TAB PO SCH (21:11)
[2019-03-26] MEDS: ATORVASTATIN 10 MG TAB PO SCH (08:19)
[2019-03-26] MEDS: LISINOPRIL 20 MG TAB PO SCH (08:19)
[2019-03-26] MEDS: SENNOSIDES 8.6 MG TAB PO SCH ×2 (08:19→21:10)
[2019-03-26] MEDS: CARBIDOPA-LEVODOPA 25-100 MG 1 EACH TAB PO SCH ×3 (08:19→21:10)
[2019-03-26] MEDS: CHOLECALCIFEROL 1,000 UNIT TAB PO SCH (08:20)
[2019-03-26] MEDS: APIXABAN 2.5 MG TABLET PO SCH ×2 (08:20→21:10)
[2019-03-26] MEDS: ASPIRIN 81 MG PO SCH (08:20)
[2019-03-26] MEDS: AMANTADINE HCL 100 MG CAP PO SCH ×2 (08:20→21:10)
[2019-03-26] MEDS: LEVOTHYROXINE 125 MCG TAB PO SCH (21:10)
[2019-03-27] MEDS: ASPIRIN 81 MG PO SCH (09:07)
[2019-03-27] MEDS: CARBIDOPA-LEVODOPA 25-100 MG 1 EACH TAB PO SCH ×3 (09:07→21:31)
[2019-03-27] MEDS: APIXABAN 2.5 MG TABLET PO SCH ×2 (09:07→21:31)
[2019-03-27] MEDS: AMANTADINE HCL 100 MG CAP PO SCH ×2 (09:07→21:30)
[2019-03-27] MEDS: SENNOSIDES 8.6 MG TAB PO SCH ×2 (09:07→21:30)
[2019-03-27] MEDS: CHOLECALCIFEROL 1,000 UNIT TAB PO SCH (09:07)
[2019-03-27] MEDS: LISINOPRIL 20 MG TAB PO SCH (09:07)
[2019-03-27] MEDS: ATORVASTATIN 10 MG TAB PO SCH (09:07)
--- NOTE | 2019-03-27 10:42 | P.PN ---
Subjective Progress Note Date: 03/25/19 Principal diagnosis: Acute urinary tract infection Acute kidney injury Patient is a 84-year-old male with a known history of hypertension, osteoarthritis, hypothyroidism and Parkinson's disease, dementia was sent from assisted living facility for evaluation of altered mental status.Per EMS they were told that today around lunchtime the patient was found wandering around the hallway and seemed to be confused. Patient reports that yesterday during the day he was not feeling well and refused to eat his lunch because he felt like he might throw up. Patient was brought to the hospital by EMS. Currently patient is awake alert oriented 3 and able to communicate slowly. Patient does not know the specific reason why is he is now in the hospital. Denied any fever or chills. Currently denied any nausea vomiting or abdominal pain. Denied any dysuria or hematuria. Denied any recent illnesses. No headache or dizziness or lightheadedness. WBC 11.1, BUN 32 and creatinine level I.43, Urinalysis showed cloudy with large leukocyte esterase and WBCs 25 EKG showed normal sinus rhythm with first-degree AV block Rest x-ray showed stable small right pleural effusion with associated basilar atelectasis and/or infiltrate. 03/25/2019 Patient denied any complains of chest pain or shortness of breath today. No abdominal pain. Mentation is at baseline. Patient is being continued on antibiotics in the form of ceftriaxone. Follow urine culture report. No fever no chills. No other acute overnight issues. Current medications reviewed. Objective - Vital Signs Vital signs: Vital Signs Temp 98.8 F 03/25/19 20:52 Pulse 70 03/25/19 20:52 Resp 18 03/25/19 20:52 BP 123/67 03/25/19 20:52 Pulse Ox 96 03/25/19 20:52 Intake & Output 03/25/19 03/25/19 03/26/19 06:59 18:59 06:59 Intake Total 50 950 Output Total 200 700 Balance -150 250 Intake: Intake, IV Titration 50 Amount cefTRIAXone 1 gm In 50 Sodium Chloride 0.9% 50 ml @ 100 mls/hr IVPB Q24H [facility] Rx#:[id number] Oral 950 Output: Urine 200 700 Other: Voiding Method Urinal Urinal Diaper Diaper # Voids 1 2 - Exam PHYSICAL EXAMINATION: Patient is lying in the bed comfortably, no acute distress, awake alert and oriented.. HEENT: Normocephalic. Neck is supple. Pupils reactive. Nostrils clear. Oral cavity is moist. Ears reveal no drainage. Neck reveals no JVD, carotid bruits, or thyromegaly. CHEST EXAMINATION: Trachea is central. Symmetrical expansion. Lung forbes clear to auscultation and percussion. CARDIAC: Normal S1, S2 with no gallops. Systolic murmur present ABDOMEN: Soft. Bowel sounds normal. No organomegaly. No abdominal bruits. Extremities: reveal no edema. No clubbing or cyanosis Neurologically awake, alert, oriented x3 with well-coordinated movements. Underlying dementia. No focal deficits noted Skin: No rash or skin lesions. Psychiatric: Coperative. Nonsuicidal Musculoskeletal: No joint swelling or deformity. Normal range of motion. - Labs CBC & Chem 7: 03/25/19 16:36 03/25/19 16:36 Labs: Abnormal Lab Results - Last 24 Hours (Table) 03/25/19 03/25/19 Range/Units 16:36 16:36 RBC 3.17 L (4.30-5.90) m/uL Hgb 10.0 L (13.0-17.5) gm/dL Hct 32.0 L (39.0-53.0) % MCV 100.8 H (80.0-100.0) fL Monocytes # 1.3 H (0-1.0) k/uL Eosinophils # 1.9 H (0-0.7) k/uL BUN 25 H (9-20) mg/dL Creatinine 1.40 H (0.66-1.25) mg/dL Glucose 104 H (74-99) mg/dL Assessment and Plan Assessment: Acute urinary tract infection. Follow-up culture reports Altered mental status possible encephalopathy secondary infection. Resolving now Hypertension Hyperlipidemia Osteoarthritis Hypothyroidism Bladder cancer status post surgery in 2012 History of diverticulosis Hand tremors Parkinson's disease aortic valve stenosis DVT prophylaxis with heparin subcu Plan: Patient will be continued on antibiotics the form of ceftriaxone. Follow-up urine culture report. Gentle hydration. Encourage ambulation and incentive spirometry and follow up closely. Continue the home medications and further recommendations based on the clinical course. Prognosis is guarded with multiple medical problems and comorbid conditions. Time with Patient: Greater than 30
--- NOTE | 2019-03-27 10:44 | P.PN ---
Subjective Progress Note Date: 03/26/19 Principal diagnosis: Acute urinary tract infection Acute kidney injury Patient is a 84-year-old male with a known history of hypertension, osteoarthritis, hypothyroidism and Parkinson's disease, dementia was sent from assisted living facility for evaluation of altered mental status.Per EMS they were told that today around lunchtime the patient was found wandering around the hallway and seemed to be confused. Patient reports that yesterday during the day he was not feeling well and refused to eat his lunch because he felt like he might throw up. Patient was brought to the hospital by EMS. Currently patient is awake alert oriented 3 and able to communicate slowly. Patient does not know the specific reason why is he is now in the hospital. Denied any fever or chills. Currently denied any nausea vomiting or abdominal pain. Denied any dysuria or hematuria. Denied any recent illnesses. No headache or dizziness or lightheadedness. WBC 11.1, BUN 32 and creatinine level I.43, Urinalysis showed cloudy with large leukocyte esterase and WBCs 25 EKG showed normal sinus rhythm with first-degree AV block Rest x-ray showed stable small right pleural effusion with associated basilar atelectasis and/or infiltrate. 03/25/2019 Patient denied any complains of chest pain or shortness of breath today. No abdominal pain. Mentation is at baseline. Patient is being continued on antibiotics in the form of ceftriaxone. Follow urine culture report. No fever no chills. No other acute overnight issues. 03/26/2019 Patient's mental condition is at baseline. Patient will be continued on antibiotics the form of ceftriaxone. Urine culture was not sent. Continue with oral antibiotics for 3 more days upon discharge.. Possible discharge in next 24 hours to facility. No nausea vomiting or abdominal pain. Tolerating oral diet. No diarrhea. Current medications reviewed. Objective - Vital Signs Vital signs: Vital Signs Temp 98.3 F 03/26/19 12:04 Pulse 65 03/26/19 15:38 Resp 17 03/26/19 15:38 BP 126/70 03/26/19 12:04 Pulse Ox 96 03/26/19 12:04 Intake & Output 03/25/19 03/26/19 03/26/19 18:59 06:59 18:59 Intake Total 950 100 780 Output Total 700 450 Balance 250 -350 780 Intake: Intake, IV Titration 100 100 Amount cefTRIAXone 1 gm In 100 100 Sodium Chloride 0.9% 50 ml @ 100 mls/hr IVPB Q24H [facility] Rx#:[id number] Oral 950 680 Output: Urine 700 450 Other: Voiding Method Urinal Urinal Urinal Diaper Diaper Diaper # Voids 2 1 2 - Exam PHYSICAL EXAMINATION: Patient is lying in the bed comfortably, no acute distress, awake alert and oriented.. HEENT: Normocephalic. Neck is supple. Pupils reactive. Nostrils clear. Oral cavity is moist. Ears reveal no drainage. Neck reveals no JVD, carotid bruits, or thyromegaly. CHEST EXAMINATION: Trachea is central. Symmetrical expansion. Lung forbes clear to auscultation and percussion. CARDIAC: Normal S1, S2 with no gallops. Systolic murmur present ABDOMEN: Soft. Bowel sounds normal. No organomegaly. No abdominal bruits. Extremities: reveal no edema. No clubbing or cyanosis Neurologically awake, alert, oriented x3 with well-coordinated movements. Underlying dementia. No focal deficits noted Skin: No rash or skin lesions. Psychiatric: Coperative. Nonsuicidal Musculoskeletal: No joint swelling or deformity. Normal range of motion. - Labs CBC & Chem 7: 03/25/19 16:36 03/25/19 16:36 Labs: Abnormal Lab Results - Last 24 Hours (Table) 03/25/19 03/25/19 Range/Units 16:36 16:36 RBC 3.17 L (4.30-5.90) m/uL Hgb 10.0 L (13.0-17.5) gm/dL Hct 32.0 L (39.0-53.0) % MCV 100.8 H (80.0-100.0) fL Monocytes # 1.3 H (0-1.0) k/uL Eosinophils # 1.9 H (0-0.7) k/uL BUN 25 H (9-20) mg/dL Creatinine 1.40 H (0.66-1.25) mg/dL Glucose 104 H (74-99) mg/dL Assessment and Plan Assessment: Acute urinary tract infection. Follow-up culture reports Altered mental status possible encephalopathy secondary infection. Resolving now Acute kidney injury most likely prerenal. Hypertension Hyperlipidemia Osteoarthritis Hypothyroidism Bladder cancer status post surgery in 2012 History of diverticulosis Hand tremors Parkinson's disease aortic valve stenosis DVT prophylaxis with heparin subcu Plan: Patient will be continued on antibiotics the form of ceftriaxone. Follow-up urine culture report. Gentle hydration. Encourage ambulation and incentive spirometry and follow up closely. Continue the home medications and further recommendations based on the clinical course. Prognosis is guarded with multiple medical problems and comorbid conditions. Time with Patient: Greater than 30
--- NOTE | 2019-03-27 11:28 | P.DS ---
Providers Date of admission: 03/26/19 13:43 Expected date of discharge: 03/27/19 Attending physician: Keaton Morales Primary care physician: Keaton Morales Hospital Course: 84-year-old male was admitted from the emergency room with complaints of altered mental status confusion patient found to have urinary tract infection. Patient awake and alert and discussion this morning. Patient was treated with Rocephin has improved Assessment Acute urinary tract infection Altered mental status and metabolic encephalopathy secondary to UTI Hypertension Hyperlipidemia Osteoarthritis hypothyroidism History of bladder cancer surgery 2011 And tremor Parkinson's aortic valve stenosis with murmur Plan manager of allied health services consult for placement May return to assisted living if that is appropriate Follow-up with family physician Dr. Keaton Morales Patient Condition at Discharge: Stable Plan - Discharge Summary Discharge Rx Participant: Yes New Discharge Prescriptions: New Amoxic-Pot Clav 875-125Mg [Augmentin 875-125] 1 tab PO Q12HR #20 tablet Continue Levothyroxine Sodium [Synthroid] 125 mcg PO HS Lisinopril 40 mg PO DAILY Lovastatin [Mevacor] 40 mg PO DAILY Aspirin 81 mg PO DAILY rOPINIRole HCL [Requip] 0.25 mg PO HS Carbidopa-Levodopa 25-100 mg [Sinemet 25-100 mg] 1 tab PO TID Amantadine HCl [Symmetrel] 100 mg PO BID Cholecalciferol [Vitamin D3 (25 Mcg = 1000 Iu)] 1,000 unit PO DAILY Apixaban [Eliquis] 2.5 mg PO BID Acetaminophen Tab [Tylenol] 650 mg PO Q6H PRN PRN Reason: Pain Sennosides [Senokot] 17.2 mg PO BID Discharge Medication List Aspirin 81 mg PO DAILY 12/11/13 [History] Levothyroxine Sodium [Synthroid] 125 mcg PO HS 12/11/13 [History] Lisinopril 40 mg PO DAILY 12/11/13 [History] Lovastatin [Mevacor] 40 mg PO DAILY 12/11/13 [History] Amantadine HCl [Symmetrel] 100 mg PO BID 01/30/19 [History] Carbidopa-Levodopa 25-100 mg [Sinemet 25-100 mg] 1 tab PO TID 01/30/19 [History] rOPINIRole HCL [Requip] 0.25 mg PO HS 01/30/19 [History] Acetaminophen Tab [Tylenol] 650 mg PO Q6H PRN 03/23/19 [History] Apixaban [Eliquis] 2.5 mg PO BID 03/23/19 [History] Cholecalciferol [Vitamin D3 (25 Mcg = 1000 Iu)] 1,000 unit PO DAILY 03/23/19 [History] Sennosides [Senokot] 17.2 mg PO BID 03/23/19 [History] Amoxic-Pot Clav 875-125Mg [Augmentin 875-125] 1 tab PO Q12HR #20 tablet 03/27/19 [Rx] Follow up Appointment(s)/Referral(s): Keaton Morales MD [Primary Care Provider] - 1-2 days Activity/Diet/Wound Care/Special Instructions: pt will return to [facility] at time of d/c.
--- NOTE | 2019-03-27 11:57 | CDI ---
Documentation Clarification Form Date: 03/27/2019 11:45:37 AM From: Marianne HarveyGISELA, CCDS Admit Date: 03/26/2019 1:43:00 PM Patient Name: Laurel Velez Visit Number: [id number] Discharge Date: ATTENTION: The Clinical Documentation Specialists (CDI) and [facility] Coding Staff appreciate your assistance in clarifying documentation. Please respond to the clarification below the line at the bottom and electronically sign. The CDI & [facility] Coding staff will review the response and follow-up if needed. Please note: Queries are made part of the Legal Health Record. If you have any questions, please contact the author of this message via ITS. Dr. Baldomero Bravo: Encephalopathy is documented in the 03/26 progress note: "Altered mental status possible encephalopathy secondary infection." History/Risk Factors: Hypertension, Hyperlipidemia, Hypothyroidism, OA, Bladder CA status post surgery '12, Diverticulosis, Hand tremors, Parkinson's disease & aortic valve stenosis. Clinical Indicators: Presented with altered mental status, diagnosed with UTI. Per subsequent progress notes, seemed to be confused. Labs: WBC 11.1^, Hgb 11.1*, Hct 34.8*, [place] 1.5^, Eos 1.4^, BUN 32^, Cr 1.43^, Glucose 106^. UA: clear, trace protein, 1+ ketones, large esterase, WBC 25. Toxicology: negative CXR: Stable small right pleural effusion with associated basilar atelectasis and/or infiltrate. Mild cardiomegaly. Treatment: IV fluid bolus, IV Rocephin, po Eliquis & Aspirin. In your professional opinion, can you please clarify the specific type of Encephalopathy, if known? Metabolic Encephalopathy Toxic Encephalopathy Other, please specify Unable to determine (Last Revision: October 2017) MTDD
[2019-03-27 12:06] LABS: Calcium 9.4 mg/dL (8.4-10.2); Potassium 3.8 mmol/L (3.5-5.1)
[2019-03-27] MEDS: LEVOTHYROXINE 125 MCG TAB PO SCH (21:30)
[2019-03-27] MEDS: ACETAMINOPHEN TAB 325 MG TAB PO PRN (21:31)
[2019-03-28] MEDS: ATORVASTATIN 10 MG TAB PO SCH (07:59)
[2019-03-28] MEDS: LISINOPRIL 20 MG TAB PO SCH (07:59)
[2019-03-28] MEDS: CARBIDOPA-LEVODOPA 25-100 MG 1 EACH TAB PO SCH ×3 (07:59→22:58)
[2019-03-28] MEDS: SENNOSIDES 8.6 MG TAB PO SCH ×2 (07:59→22:58)
[2019-03-28] MEDS: AMANTADINE HCL 100 MG CAP PO SCH ×2 (07:59→22:56)
[2019-03-28] MEDS: CHOLECALCIFEROL 1,000 UNIT TAB PO SCH (07:59)
[2019-03-28] MEDS: ASPIRIN 81 MG PO SCH (07:59)
[2019-03-28] MEDS: APIXABAN 2.5 MG TABLET PO SCH ×2 (07:59→22:57)
[2019-03-28] MEDS: LEVOTHYROXINE 125 MCG TAB PO SCH (22:57)
[2019-03-29] MEDS ORDERED: LORazepam 2 MG/ML INJ IV PRN (02:22)
[2019-03-29] MEDS: APIXABAN 2.5 MG TABLET PO SCH (08:56)
[2019-03-29] MEDS: ASPIRIN 81 MG PO SCH (08:56)
[2019-03-29] MEDS: AMANTADINE HCL 100 MG CAP PO SCH (08:56)
[2019-03-29] MEDS: ATORVASTATIN 10 MG TAB PO SCH (08:56)
[2019-03-29] MEDS: CHOLECALCIFEROL 1,000 UNIT TAB PO SCH (08:57)
[2019-03-29] MEDS: LISINOPRIL 20 MG TAB PO SCH (08:57)
[2019-03-29] MEDS: SENNOSIDES 8.6 MG TAB PO SCH (08:57)
[2019-03-29] MEDS: CARBIDOPA-LEVODOPA 25-100 MG 1 EACH TAB PO SCH (08:57)
--- NOTE | 2019-03-29 11:41 | P.PN ---
Progress Note - Text Had..-year-old with insurance company. Plan is for transfer back to assisted living with assistance. It and communicated with embedded case manager regarding transfer
[2019-03-29 13:11] VITALS: BP 114/66; PULSE 73; RESP 16; TEMP 98.2
== END 2019-03-29 14:55 | disposition home or self-care (01) | DRG 689 ==
LOC: EC 21:00 → 3NMEDONC 03-24 00:16 → OBSVTOIN 03-26 13:43 → 3NMEDONC 03-28 19:40
PROVIDERS: ADMIT Family Medicine; ATTEND Family Medicine
DX: N39.0 Urinary tract infection, site not specified (principal); G93.41 Metabolic encephalopathy; N17.9 Acute kidney failure, unspecified; G93.40 Encephalopathy, unspecified; E78.5 Hyperlipidemia, unspecified; I10 Essential (primary) hypertension; E03.9 Hypothyroidism, unspecified; K57.90 Diverticulosis of intestine, part unspecified, without perforation or abscess without bleeding; I35.0 Nonrheumatic aortic (valve) stenosis; M19.90 Unspecified osteoarthritis, unspecified site; G20 Parkinson's disease; F02.80 Dementia in other diseases classified elsewhere, unspecified severity, without behavioral disturbance, psychotic disturbance, mood disturbance, and anxiety; Z96.1 Presence of intraocular lens; Z98.41 Cataract extraction status, right eye; Z98.42 Cataract extraction status, left eye; Z79.82 Long term (current) use of aspirin; Z79.890 Hormone replacement therapy; Z79.899 Other long term (current) drug therapy; Z79.01 Long term (current) use of anticoagulants; Z85.51 Personal history of malignant neoplasm of bladder; Z82.49 Family history of ischemic heart disease and other diseases of the circulatory system; Z82.5 Family history of asthma and other chronic lower respiratory diseases; Z91.83 Wandering in diseases classified elsewhere; Z98.890 Other specified postprocedural states
CPT/HCPCS: 36415; 71046; 80048; 80053; 80306; 81001; 84484; 85025; 85610; 85730; 93005; 94760; 96374; 99285